=== PATIENT | male | born 1960 | race African-American/Black ===

== ENCOUNTER 2022-04-03 19:29 | Inpatient (IN) | payer OTHER, SELFPAY ==
--- NOTE | ~2022-04-03 | XR_ITS ---
EXAMINATION: XR ABDOMEN KUB CLINICAL INDICATION: History of stimulator. Pre-MRI. COMPARISON: None TECHNIQUE: AP view of the abdomen. FINDINGS: There is no neural stimulators seen in the lower thoracic lumbar or sacral spine. No metallic radiopaque foreign body seen. Scattered stool and gas is seen in colon without distention. There is no organomegaly or radiopaque calculi. There is mild dextro scoliosis lumbar spine. No aggressive lytic or sclerotic process seen. SI joints are symmetrical. XR/XR KUB IMPRESSION: 1. No neural stimulators seen in the lower thoracic, lumbar or sacral spine. 2. Mild constipation.
--- NOTE | ~2022-04-03 | XR_ITS ---
EXAMINATION: XR CHEST CLINICAL INFORMATION: cough fever COMPARISON: None TECHNIQUE: Frontal view of the chest was obtained. FINDINGS: Patchy multifocal ground glass airspace opacities are present in both lungs. No pneumothorax or pleural effusion. Cardiac and mediastinal contours are normal for technique. No acute osseous findings. Prior left distal clavicular resection. Mild osteoarthritis in the right acromioclavicular joint. Degenerative spondylosis in the thoracic spine. XR/XR chest 1V IMPRESSION: Patchy multifocal ground glass airspace opacities in both lungs, most concerning for multifocal pneumonia, likely viral
[2022-04-03 19:38] VITALS: BP 105/57; BP 110/62; PULSE 91; PULSE 98; RESP 18; TEMP 38.3; O2SAT 94; O2SAT 98; BMI 23.6
--- NOTE | 2022-04-03 19:47 | ED.AMS ---
HPI - Altered Mental Status General Chief Complaint: Altered Mental Status Stated Complaint: lower back pain Time Seen by Provider: 04/03/22 19:36 Source: patient and EMS Mode of arrival: EMS Limitations: no limitations History of Present Illness HPI narrative: Patient history of alcohol abuse IVDA cocaine and heroin in detox center for last 8 weeks comes here been having low back pain, cough for last few days had fever and chills today. On arrival patient's blood pressure was 105/57 temperature 101 degrees no vomiting no urinary complaints no abdominal distention or pain Related Data Allergies Allergy/AdvReac Type Severity Reaction Status Date / Time No Known Allergies Allergy Verified 04/03/22 19:46 Review of Systems Review of Systems: Yes all other systems are reviewed and are negative [facility] Past Medical History Medical History Alcohol use disorder Mood disorder Tobacco use disorder Social History Social History Smoked in Last 30 Days: Yes Use of substances other than those prescribed or required for medical reasons: Yes Substance Use Type: Crack/Cocaine Advance Directives: No Advance Directives Information Provided: No Physical Exam ED Vital Signs: Vital Signs - 24 hr 04/03/22 19:38 04/03/22 20:35 04/03/22 20:35 Temperature 101.0 F H 8 F L Pulse Rate 91 91 Respiratory Rate 18 15 16 Blood Pressure 105/57 L 105/57 L Pulse Oximetry 94 96 Oxygen Delivery Method Room Air Room Air 04/03/22 21:40 04/03/22 22:14 04/03/22 22:00 Temperature 99.4 F 99.4 F Pulse Rate 87 83 Respiratory Rate 16 Blood Pressure 103/63 Pulse Oximetry 100 Oxygen Delivery Method Room Air BMI result Body Mass Index 23.6 Appearance: Alert. Oriented X3. No acute distress. Eyes: pallor+ No Nystagmus ENT: Pharynx normal. Oral Mucosa moist Neck: Normal inspection. Neck supple. CVS: Normal heart rate and rhythm. Pulses normal. Respiratory: No respiratory distress. Equal air entry bilateral, no wheezing/rales/rhonchi Abdomen: Soft and nontender. Bowel sounds are present, no mass palpable, no CVA tenderness rectal: dark stool + guaic +ve Skin: Skin warm and dry. Normal skin color. Normal skin turgor. Extremities: 2+ lower extremity edema. No calf tenderness Neuro: Oriented X 3. No motor deficit. No sensory deficit.No cerebellar signs , cranial nerves II-XII intact Medications Administered Generic Name Dose Route Start Last Admin Trade Name Freq PRN Reason Stop Dose Admin Sodium Chloride 1,000 mls @ 100 mls/hr 04/04/22 00:15 04/04/22 00:51 Ns IVCONT 100 mls/hr .Q10H DEDRICK Administration Nicotine 21 mg 04/04/22 00:25 04/04/22 01:03 Nicotine 21 Mg Patch.Td24 TRANSDERMA Not Given DAILY DEDRICK Discontinued Medications Generic Name Dose Route Start Last Admin Trade Name Freq PRN Reason Stop Dose Admin Acetaminophen 650 mg 04/03/22 19:53 04/03/22 21:07 Acetaminophen 325 Mg Tablet PO 04/03/22 19:54 650 mg ONCE ONE Administration Famotidine 20 mg 04/03/22 23:18 04/03/22 23:42 Famotidine/Pf 20 Mg/2 Ml Vial IVPUSH 04/03/22 23:19 20 mg ONCE ONE Administration Sodium Chloride 1,000 mls @ 999 mls/hr 04/03/22 19:47 04/03/22 22:09 Ns IV 04/03/22 20:47 Infused .Q1H1M ONE Infusion Ceftriaxone Sodium 1 gm/ 50 mls @ 100 mls/hr 04/03/22 21:31 04/03/22 22:22 Sodium Chloride IV 04/03/22 22:00 Infused ONCE ONE Infusion Azithromycin 500 mg/ Sodium 250 mls @ 125 mls/hr 04/03/22 21:31 04/04/22 00:16 Chloride IV 04/03/22 23:30 Infused ONCE ONE Infusion Ketorolac Tromethamine 30 mg 04/03/22 19:53 04/03/22 21:08 Ketorolac Tromethamine 30 Mg/Ml Vial IVPUSH 04/03/22 19:54 30 mg ONCE ONE Administration Pantoprazole Sodium 80 mg 04/04/22 00:19 04/04/22 00:51 Pantoprazole Sodium 40 Mg/10 Ml Vial IVPUSH 04/04/22 00:20 80 mg ONCE ONE Administration Medical Decision Making Medical Decision Making MDM Narrative: Patient with multifocal pneumonia with change in sensorium with normal WBC count hemoglobin 7.6 MCV 78.9 likely iron deficiency anemia patient guaiac is positive but stool is brown patient used to be on iron tablets in the past. Lab workup showed iron level of 23 TIBC 215 saturating 11% meeting criteria for iron deficiency anemia at this time patient is asymptomatic from anemia will give iron tablets and admit Differential Diagnosis Pneumonia/COVID/influenza/UTI/viral syndrome Consult Healthcare Provider Management of the patient was discussed with: Hospitalist Lab Data [facility] Lab Attestation statement: I reviewed the patient's lab results. 04/03/22 20:19 04/03/22 20:19 Labs: Lab Results 04/03/22 04/03/22 04/03/22 Range/Units 20:19 20:19 20:19 WBC 10.0 (4.8-10.8) X10*3/uL RBC 2.99 L (4.60-5.80) X10*6/uL Hgb 7.6 L (14.0-18.0) g/dl Hct 23.6 L (42.0-52.0) % MCV 78.9 L (80.0-98.0) fL MCH 25.4 L (27.0-33.0) pg MCHC 32.2 (31.0-36.0) g/dl RDW 16.5 H (11.0-16.0) % Plt Count 107 L (160-400) X10*3/uL MPV 9.4 (9.4-12.4) fL Immature Gran % (Auto) 1.7 H (0.0-0.4) % Neut % (Auto) 80.6 H (45-73) % Lymph % (Auto) 6.8 L (20-40) % [place] % (Auto) 10.5 (2-11) % Eos % (Auto) 0.2 (0-4) % Baso % (Auto) 0.2 (0-2) % Lymph # (Auto) 0.7 L (1.2-4.9) X10*3/uL [place] # (Auto) 1.1 (0.1-1.2) X10*3/uL Eos # (Auto) 0.0 (0.0-0.4) X10*3/uL Baso # (Auto) 0.0 (0.0-0.2) X10*3/uL Abs Immat Gran (auto) 0.17 H (0.00-0.03) X10*3/uL Absolute Neuts (auto) 8.0 (2.0-8.3) x10*3/uL Absolute Nucleated RBC 0.000 (0.0-0.012) X10*3/uL Nucleated RBC % (auto) 0.0 (0.0-0.2) /100WBC Sodium 128 L (135-145) mmol/L Potassium 4.7 (3.3-5.1) mmol/L Chloride 100 (96-108) mmol/L Carbon Dioxide 20 L (22-29) mmol/L Anion Gap 13 (12-20) BUN 16 (9-16) mg/dL Creatinine 0.62 (0.5-1.4) mg/dL Estim Creat Clear Calc 121.9 Estimated GFR > 60 Random Glucose 104 (60-115) mg/dL Lactic Acid 1.3 (0.5-2.0) mmol/L Calcium 7.9 L (8.4-10.2) mg/dL Iron 23 L (45-160) mcg/dL TIBC 215 L (228-428) mcg/dL % Saturation 11 L (15-50) % Unsat Iron Binding 192 ug/dL Total Bilirubin 0.8 (0.0-1.0) mg/dL AST 146 H (5-37) U/L ALT 90 H (0-40) U/L Alkaline Phosphatase 181 H (39-117) U/L Total Protein 7.5 (6.5-8.0) g/dL Albumin 2.4 L (3.5-5.0) g/dL Urine Color Urine Appearance Urine pH (5.0-9.0) Ur Specific Young (1.005-1.025) Urine Protein (Neg-Trace) mg/dL Urine Glucose (UA) (Negative) mg/dL Urine Ketones (Negative) mg/dL Urine Blood (Negative) Urine Nitrite (Negative) Ur Leukocyte Esterase (Negative) Urine RBC (0-2) /HPF Urine WBC (0-5) /HPF Ur Squamous Epith Cells (0-2) /HPF Urine Bacteria (None Seen) Hyaline Casts (0-2) /LPF Stool Occult Blood (NEGATIVE) Influenza Type A (PCR) (Negative) Influenza Type B (PCR) (Negative) RSV RNA Qual (PCR) (Negative) SARS-CoV-2 RNA (RT-PCR) (Negative) Blood Type Rho(D) Type Antibody Screen 04/03/22 04/03/22 04/03/22 Range/Units 20:19 21:07 23:28 WBC (4.8-10.8) X10*3/uL RBC (4.60-5.80) X10*6/uL Hgb (14.0-18.0) g/dl Hct (42.0-52.0) % MCV (80.0-98.0) fL MCH (27.0-33.0) pg MCHC (31.0-36.0) g/dl RDW (11.0-16.0) % Plt Count (160-400) X10*3/uL MPV (9.4-12.4) fL Immature Gran % (Auto) (0.0-0.4) % Neut % (Auto) (45-73) % Lymph % (Auto) (20-40) % [place] % (Auto) (2-11) % Eos % (Auto) (0-4) % Baso % (Auto) (0-2) % Lymph # (Auto) (1.2-4.9) X10*3/uL [place] # (Auto) (0.1-1.2) X10*3/uL Eos # (Auto) (0.0-0.4) X10*3/uL Baso # (Auto) (0.0-0.2) X10*3/uL Abs Immat Gran (auto) (0.00-0.03) X10*3/uL Absolute Neuts (auto) (2.0-8.3) x10*3/uL Absolute Nucleated RBC (0.0-0.012) X10*3/uL Nucleated RBC % (auto) (0.0-0.2) /100WBC Sodium (135-145) mmol/L Potassium (3.3-5.1) mmol/L Chloride (96-108) mmol/L Carbon Dioxide (22-29) mmol/L Anion Gap (12-20) BUN (9-16) mg/dL Creatinine (0.5-1.4) mg/dL Estim Creat Clear Calc Estimated GFR Random Glucose (60-115) mg/dL Lactic Acid (0.5-2.0) mmol/L Calcium (8.4-10.2) mg/dL Iron (45-160) mcg/dL TIBC (228-428) mcg/dL % Saturation (15-50) % Unsat Iron Binding ug/dL Total Bilirubin (0.0-1.0) mg/dL AST (5-37) U/L ALT (0-40) U/L Alkaline Phosphatase (39-117) U/L Total Protein (6.5-8.0) g/dL Albumin (3.5-5.0) g/dL Urine Color Yellow Urine Appearance Clear Urine pH 7.0 (5.0-9.0) Ur Specific Young 1.015 (1.005-1.025) Urine Protein Negative (Neg-Trace) mg/dL Urine Glucose (UA) Negative (Negative) mg/dL Urine Ketones Negative (Negative) mg/dL Urine Blood Small (1+) H (Negative) Urine Nitrite Negative (Negative) Ur Leukocyte Esterase Negative (Negative) Urine RBC 0-2 (0-2) /HPF Urine WBC 0-5 (0-5) /HPF Ur Squamous Epith Cells 0-2 (0-2) /HPF Urine Bacteria None Seen (None Seen) Hyaline Casts 0-2 (0-2) /LPF Stool Occult Blood POSITIVE (NEGATIVE) Influenza Type A (PCR) NEGATIVE (Negative) Influenza Type B (PCR) NEGATIVE (Negative) RSV RNA Qual (PCR) NEGATIVE (Negative) SARS-CoV-2 RNA (RT-PCR) NEGATIVE (Negative) Blood Type Rho(D) Type Antibody Screen 04/03/22 Range/Units 23:55 WBC (4.8-10.8) X10*3/uL RBC (4.60-5.80) X10*6/uL Hgb (14.0-18.0) g/dl Hct (42.0-52.0) % MCV (80.0-98.0) fL MCH (27.0-33.0) pg MCHC (31.0-36.0) g/dl RDW (11.0-16.0) % Plt Count (160-400) X10*3/uL MPV (9.4-12.4) fL Immature Gran % (Auto) (0.0-0.4) % Neut % (Auto) (45-73) % Lymph % (Auto) (20-40) % [place] % (Auto) (2-11) % Eos % (Auto) (0-4) % Baso % (Auto) (0-2) % Lymph # (Auto) (1.2-4.9) X10*3/uL [place] # (Auto) (0.1-1.2) X10*3/uL Eos # (Auto) (0.0-0.4) X10*3/uL Baso # (Auto) (0.0-0.2) X10*3/uL Abs Immat Gran (auto) (0.00-0.03) X10*3/uL Absolute Neuts (auto) (2.0-8.3) x10*3/uL Absolute Nucleated RBC (0.0-0.012) X10*3/uL Nucleated RBC % (auto) (0.0-0.2) /100WBC Sodium (135-145) mmol/L Potassium (3.3-5.1) mmol/L Chloride (96-108) mmol/L Carbon Dioxide (22-29) mmol/L Anion Gap (12-20) BUN (9-16) mg/dL Creatinine (0.5-1.4) mg/dL Estim Creat Clear Calc Estimated GFR Random Glucose (60-115) mg/dL Lactic Acid (0.5-2.0) mmol/L Calcium (8.4-10.2) mg/dL Iron (45-160) mcg/dL TIBC (228-428) mcg/dL % Saturation (15-50) % Unsat Iron Binding ug/dL Total Bilirubin (0.0-1.0) mg/dL AST (5-37) U/L ALT (0-40) U/L Alkaline Phosphatase (39-117) U/L Total Protein (6.5-8.0) g/dL Albumin (3.5-5.0) g/dL Urine Color Urine Appearance Urine pH (5.0-9.0) Ur Specific Young (1.005-1.025) Urine Protein (Neg-Trace) mg/dL Urine Glucose (UA) (Negative) mg/dL Urine Ketones (Negative) mg/dL Urine Blood (Negative) Urine Nitrite (Negative) Ur Leukocyte Esterase (Negative) Urine RBC (0-2) /HPF Urine WBC (0-5) /HPF Ur Squamous Epith Cells (0-2) /HPF Urine Bacteria (None Seen) Hyaline Casts (0-2) /LPF Stool Occult Blood (NEGATIVE) Influenza Type A (PCR) (Negative) Influenza Type B (PCR) (Negative) RSV RNA Qual (PCR) (Negative) SARS-CoV-2 RNA (RT-PCR) (Negative) Blood Type Cancelled Rho(D) Type Cancelled Antibody Screen Cancelled Discharge Plan Discharge Clinical Impression: Weakness Patient Disposition: Still a Patient
--- NOTE | 2022-04-03 19:53 | ECG_ITS ---
Test Reason : AMS Blood Pressure : / mmHG Vent. Rate : 097 BPM Atrial Rate : 097 BPM P-R Int : 138 ms QRS Dur : 084 ms QT Int : 358 ms P-R-T Axes : 037 038 036 degrees QTc Int : 454 ms Normal sinus rhythm Normal ECG No previous ECGs available Referred By: Abraham Messer Electronically Signed By:PORTER KENT MD
[2022-04-03 20:35] VITALS: BP 105/57; PULSE 91; RESP 15; RESP 16; TEMP -13.3; TEMP 8; O2SAT 96
[2022-04-03 20:37] LABS: MANUAL DIFF FLAG NO
[2022-04-03 20:39] LABS: Basophils Percent Auto 0.2 % (0-2); Eosinophils Percent Auto 0.2 % (0-4); Hematocrit 23.6 % (42.0-52.0); Hemoglobin 7.6 g/dl (14.0-18.0); Imm Gran Abs Auto 0.17 X10*3/uL (0.00-0.03); Imm Gran Pct Auto 1.7 % (0.0-0.4); Lymphocytes Absolute Auto 0.7 X10*3/uL (1.2-4.9); Lymphocytes Percent Auto 6.8 % (20-40); Mean Corpuscular HGB Conc 32.2 g/dl (31.0-36.0); Mean Corpuscular Hemoglobin 25.4 pg (27.0-33.0); Mean Corpuscular Volume 78.9 fL (80.0-98.0); Mean Platelet Volume 9.4 fL (9.4-12.4); Monocytes Absolute Auto 1.1 X10*3/uL (0.1-1.2); Monocytes Percent Auto 10.5 % (2-11); Neutrophils Percent Auto 80.6 % (45-73); Platelet Count 107 X10*3/uL (160-400); Red Blood Count 2.99 X10*6/uL (4.60-5.80); Red Cell Distribution Width 16.5 % (11.0-16.0)
[2022-04-03 20:51] LABS: Lactic Acid 1.3 mmol/L (0.5-2.0)
[2022-04-03 20:57] LABS: Alanine Aminotransferase 90 U/L (0-40); Albumin Level 2.4 g/dL (3.5-5.0); Alkaline Phosphatase 181 U/L (39-117); Anion Gap 13 (12-20); Aspartate Amino Transferase 146 U/L (5-37); Bilirubin Total 0.8 mg/dL (0.0-1.0); Blood Urea Nitrogen 16 mg/dL (9-16); Calcium 7.9 mg/dL (8.4-10.2); Carbon Dioxide 20 mmol/L (22-29); Chloride 100 mmol/L (96-108); Creatinine Clr Calc Pharmacy 121.9; Estimated Glomerular Filt Rate > 60; Glucose Random 104 mg/dL (60-115); Potassium 4.7 mmol/L (3.3-5.1); Sodium 128 mmol/L (135-145); Total Protein 7.5 g/dL (6.5-8.0)
[2022-04-03] MEDS: Acetaminophen 325 MG TABLET 650 MG PO (21:07)
[2022-04-03] MEDS: 0.9 % Sodium Chloride 1,000 ML 999 ML IV (21:08)
[2022-04-03] MEDS: Ketorolac Tromethamine 30 MG/ML VIAL IVPUSH (21:08)
[2022-04-03 21:16] LABS: Appearance Urine Clear; Color Urine Yellow; Glucose Urine UA Negative (Negative); Leukocyte Esterase Urine Negative (Negative); Nitrite Urine Negative (Negative); Specific Gravity - Urine 1.015 (1.005-1.025); UMIC TRIGGER UACC YES; Urine Blood Small (1+) (Negative); Urine Ketones Negative (Negative); Urine Protein Negative (Neg-Trace)
[2022-04-03 21:23] LABS: Influenza A PCR NEGATIVE (Negative); Influenza B PCR NEGATIVE (Negative); Resp Syncy Virus RNA Qual PCR NEGATIVE (Negative); SARS COV2 PCR INHOUSE NEGATIVE (Negative)
[2022-04-03 21:40] VITALS: PULSE 87
[2022-04-03] MEDS: cefTRIAXone sodium 1 GM in 0.9 % Sodium Chloride 50 ML IV (21:52)
[2022-04-03 22:00] VITALS: TEMP 37.4
[2022-04-03 22:14] VITALS: BP 103/63; PULSE 83; RESP 16; TEMP 37.4; O2SAT 100
[2022-04-03] MEDS: Azithromycin 500 MG in 0.9 % Sodium Chloride 250 ML 125 MG IV (22:16)
[2022-04-03 23:03] LABS: Bacteria Urine None Seen (None Seen); Hyaline Casts Urine 0-2 /LPF (0-2); RBC Urine 0-2 /HPF (0-2); Squamous Epithelial Cell Urine 0-2 /HPF (0-2); WBC Urine 0-5 /HPF (0-5)
[2022-04-03 23:26] LABS: Iron 23 mcg/dL (45-160); Percent Iron Saturation 11 % (15-50); Total Iron Binding Capacity 215 mcg/dL (228-428); Unsaturated Iron Binding 192 ug/dL
[2022-04-03 23:31] LABS: OBS Int Ctl Valid YES
[2022-04-03 23:33] LABS: OBS1 POSITIVE (NEGATIVE)
[2022-04-03] MEDS: Famotidine/PF 20 MG/2 ML VIAL IVPUSH (23:42)
[2022-04-04] VITALS (7 sets, daily range): BP systolic 97–138; BP diastolic 66–90; PULSE 63–86; RESP 11–20; TEMP 36.4–37.4; O2SAT 92–100
--- NOTE | 2022-04-04 00:04 | PM.IMHP ---
History of Present Illness Date of Service: 04/04/22 Chief Complaint: Cough This is 61-year-old male with pertinent history of alcohol use disorder, tobacco use disorder, mood disorder who presents to the emergency department for evaluation fever, chills and cough. Patient states he has been having these symptoms for the last few days . Does have cough with occasional yellowish sputum production. Patient denies any other symptoms at this time. States he was having chills throughout the day. He denies hematemesis, melena, hematochezia, hematuria. No blood loss. No chest discomfort, shortness of breath, palpitations, abdominal pain, changes in urinary or bowel habits. In the emergency department, imaging with pneumonia. Hemoglobin was found to be 7.6 and stool occult blood positive Review of Systems Constitutional: Constitutional: Reports chills and Reports fever(s) Cardiovascular: Cardiovascular: Reports no additional cardiovascular complaints Respiratory: Respiratory: Reports cough Gastrointestinal: Gastrointestinal: Reports no additional gastrointestinal complaints Genitourinary: Genitourinary: Reports no additional male genitourinary complaints [facility] Medical History Alcohol use disorder Mood disorder Tobacco use disorder Pertinent family history: Does not know of pertinent family history in first-degree relatives Social History Smoked in Last 30 Days: Yes Use of substances other than those prescribed or required for medical reasons: Yes Substance Use Type: Crack/Cocaine Advance Directives: No Advance Directives Information Provided: No Meds Allergies Allergy/AdvReac Type Severity Reaction Status Date / Time No Known Allergies Allergy Verified 04/03/22 19:46 Physical Exam Vital Signs and Narrative: Vital Signs: Last Vital Signs Temp 99.4 F 04/03/22 22:14 Pulse 83 04/03/22 22:14 Resp 16 04/03/22 22:14 BP 103/63 04/03/22 22:14 Pulse Ox 100 04/03/22 22:14 O2 Del Method 04/03/22 22:14 BMI result Body Mass Index 23.6 Middle-aged male lying in bed in no distress Neck supple, no JVD Regular rate and rhythm, S1-S2 heard Crackles appreciated bilaterally, no wheezing Abdomen soft nontender, no guarding, no rigidity Patient is awake, alert and oriented to self, place, time and person ; no focal motor deficit Psych: Normal mood No pedal edema Results Labs 04/03/22 20:19 04/03/22 20:19 Labs: Laboratory Results - last 24 hr 04/03/22 04/03/22 04/03/22 20:19 20:19 20:19 MCV 78.9 L MCH 25.4 L MCHC 32.2 RDW 16.5 H Plt Count 107 L MPV 9.4 Immature Gran % (Auto) 1.7 H Neut % (Auto) 80.6 H Lymph % (Auto) 6.8 L [place] % (Auto) 10.5 Eos % (Auto) 0.2 Baso % (Auto) 0.2 Lymph # (Auto) 0.7 L [place] # (Auto) 1.1 Eos # (Auto) 0.0 Baso # (Auto) 0.0 Abs Immat Gran (auto) 0.17 H Absolute Neuts (auto) 8.0 Absolute Nucleated RBC 0.000 Nucleated RBC % (auto) 0.0 Anion Gap 13 Estim Creat Clear Calc 121.9 Estimated GFR > 60 Random Glucose 104 Lactic Acid 1.3 Calcium 7.9 L Iron 23 L TIBC 215 L % Saturation 11 L Unsat Iron Binding 192 Total Bilirubin 0.8 AST 146 H ALT 90 H Alkaline Phosphatase 181 H Total Protein 7.5 Albumin 2.4 L Urine Color Urine Appearance Urine pH Ur Specific [place] Urine Protein Urine Glucose (UA) Urine Ketones Urine Blood Urine Nitrite Ur Leukocyte Esterase Urine RBC Urine WBC Ur Squamous Epith Cells Urine Bacteria Hyaline Casts Stool Occult Blood Influenza Type A (PCR) Influenza Type B (PCR) RSV RNA Qual (PCR) SARS-CoV-2 RNA (RT-PCR) Blood Type Rho(D) Type Antibody Screen 04/03/22 04/03/22 04/03/22 20:19 21:07 23:28 MCV MCH MCHC RDW Plt Count MPV Immature Gran % (Auto) Neut % (Auto) Lymph % (Auto) [place] % (Auto) Eos % (Auto) Baso % (Auto) Lymph # (Auto) [place] # (Auto) Eos # (Auto) Baso # (Auto) Abs Immat Gran (auto) Absolute Neuts (auto) Absolute Nucleated RBC Nucleated RBC % (auto) Anion Gap Estim Creat Clear Calc Estimated GFR Random Glucose Lactic Acid Calcium Iron TIBC % Saturation Unsat Iron Binding Total Bilirubin AST ALT Alkaline Phosphatase Total Protein Albumin Urine Color Yellow Urine Appearance Clear Urine pH 7.0 Ur Specific [place] 1.015 Urine Protein Negative Urine Glucose (UA) Negative Urine Ketones Negative Urine Blood Small (1+) H Urine Nitrite Negative Ur Leukocyte Esterase Negative Urine RBC 0-2 Urine WBC 0-5 Ur Squamous Epith Cells 0-2 Urine Bacteria None Seen Hyaline Casts 0-2 Stool Occult Blood POSITIVE Influenza Type A (PCR) NEGATIVE Influenza Type B (PCR) NEGATIVE RSV RNA Qual (PCR) NEGATIVE SARS-CoV-2 RNA (RT-PCR) NEGATIVE Blood Type Rho(D) Type Antibody Screen 04/03/22 23:55 MCV MCH MCHC RDW Plt Count MPV Immature Gran % (Auto) Neut % (Auto) Lymph % (Auto) [place] % (Auto) Eos % (Auto) Baso % (Auto) Lymph # (Auto) [place] # (Auto) Eos # (Auto) Baso # (Auto) Abs Immat Gran (auto) Absolute Neuts (auto) Absolute Nucleated RBC Nucleated RBC % (auto) Anion Gap Estim Creat Clear Calc Estimated GFR Random Glucose Lactic Acid Calcium Iron TIBC % Saturation Unsat Iron Binding Total Bilirubin AST ALT Alkaline Phosphatase Total Protein Albumin Urine Color Urine Appearance Urine pH Ur Specific [place] Urine Protein Urine Glucose (UA) Urine Ketones Urine Blood Urine Nitrite Ur Leukocyte Esterase Urine RBC Urine WBC Ur Squamous Epith Cells Urine Bacteria Hyaline Casts Stool Occult Blood Influenza Type A (PCR) Influenza Type B (PCR) RSV RNA Qual (PCR) SARS-CoV-2 RNA (RT-PCR) Blood Type Cancelled Rho(D) Type Cancelled Antibody Screen Cancelled Imaging Radiologist's Impressions: Impressions Chest X-Ray 04/03/22 20:49 IMPRESSION: Patchy multifocal ground glass airspace opacities in both lungs, most concerning for multifocal pneumonia, likely viral Assessment and Plan (1) Pneumonia: Status: Acute (2) Microcytic anemia: Status: Acute Plan This is 61-year-old male with pertinent history of alcohol use disorder, tobacco use disorder, mood disorder who presents to the emergency department for evaluation fever, chills and cough. #. Sepsis due to pneumonia: Will admit patient and initiate empiric IV Rocephin and azithromycin. Resuscitated with IV crystalloids. Blood culture and lactic acid obtained. Legionella antigen and sputum culture pending. #. Microcytic anemia, unclear chronicity: Stool occult positive. Will consult GI for further evaluation and management. Monitor H&H. Protonix 80 mg IV x1. #. Tobacco use disorder: Will order nicotine patch while in the hospital #. Mood disorder: Continue home mood stabilizers #. Thrombocytopenia due to alcohol use disorder #. Hyponatremia: Monitor with fluid resuscitation. Med rec pending DVT prophylaxis: Mechanical Will keep NPO until GI evaluation Full code Admit as inpatient and will require two night minimum hospital stay for IV antibiotic Time Spent With Patient Time: Total time managing care of this patient today ____ minutes. Quality Stroke Does the patient have a stroke diagnosis?: No VTE Prior VTE?: No VTE Risk Level:: Medical - moderate - high VTE Device Contraindication: N/A - Device Ordered VTE Drug Contraindication: Treatment Not Indicated
[2022-04-04] MEDS: Pantoprazole Sodium 40 MG/10 ML VIAL 80 MG IVPUSH (00:51)
[2022-04-04] MEDS: 0.9 % Sodium Chloride 1,000 ML 100 ML IVCONT ×3 (00:51→17:24)
[2022-04-04 06:43] LABS: MANUAL DIFF FLAG NO
[2022-04-04 06:53] LABS: Basophils Percent Auto 0.2 % (0-2); Eosinophils Absolute Auto 0.1 X10*3/uL (0.0-0.4); Eosinophils Percent Auto 0.8 % (0-4); Hematocrit 23.2 % (42.0-52.0); Hemoglobin 7.5 g/dl (14.0-18.0); Imm Gran Abs Auto 0.12 X10*3/uL (0.00-0.03); Imm Gran Pct Auto 1.8 % (0.0-0.4); Lymphocytes Absolute Auto 0.6 X10*3/uL (1.2-4.9); Lymphocytes Percent Auto 8.9 % (20-40); Mean Corpuscular HGB Conc 32.3 g/dl (31.0-36.0); Mean Corpuscular Hemoglobin 26.1 pg (27.0-33.0); Mean Corpuscular Volume 80.8 fL (80.0-98.0); Monocytes Absolute Auto 1.1 X10*3/uL (0.1-1.2); Monocytes Percent Auto 16.1 % (2-11); Neutrophils Absolute Auto 4.8 x10*3/uL (2.0-8.3); Neutrophils Percent Auto 72.2 % (45-73); Red Blood Count 2.87 X10*6/uL (4.60-5.80); Red Cell Distribution Width 16.7 % (11.0-16.0); White Blood Count 6.6 X10*3/uL (4.8-10.8)
[2022-04-04 06:55] LABS: Platelet Count 84 X10*3/uL (160-400)
--- NOTE | 2022-04-04 07:00 | CA_ITS ---
Transthoracic Echocardiogram Patient (Last, First, Middle): Tai Sommer, Gender: Male Date of : 1960 Age: 61 Procedure Date: 04/04/2022 Procedure Type: Transthoracic Echocardiogram Location: ER Height: 175.26 cm Weight: 72.58 kg BSA: 1.88 m2 Heart Rate: bpm BP: 114 / 71 mmHg Sinter Feeder: MARLON Referring MD: Zeny BENAVIDEZ Directional Drill Operator: Dann Subramanian MD Symptoms: bacteremia Study Quality: Fair ECG Rhythm: Sinus Conclusions: - 1. Normal LV systolic function with LVEF of 55-60% with mildly dilated cavity with pseudonormal filling pattern 2. Moderately dilated left atrium 3. Possible vegetation of the anterior mitral leaflet with mild mitral regurgitation 4. Normal RV systolic pressure 5. No gross pericardial effusion Findings Left Ventricle Mildly increased left ventricular cavity size. There is normal left ventricular wall thickness. The left ventricular systolic function is normal. The visually estimated ejection fraction is between 55-60%. Spectral Doppler is indicative of a pseudonormal filling pattern. E/E prime ratio is between 8 and 15 consistent with indeterminate filling pressures. Right Ventricle Normal right ventricular cavity size and systolic function. Atria The left atrium is moderately dilated. Interatrial shunt cannot be excluded. The right atrium is normal in size. Aortic Valve There is mild calcification of the aortic valve. There is moderate thickening of the aortic valve. There is no aortic valve stenosis. There is no aortic valve regurgitation. Mitral Valve There is moderate anterior and posterior mitral leaflet thickening. There is mild mitral valve regurgitation. There is no mitral valve stenosis. a mobile mass attached to the anterior leaflet, measuring about 1 cm could represent vegetation. Consider LINDSAY Pulmonic Valve The pulmonic valve was not well visualized. Tricuspid Valve Likely normal tricuspid valve structure and function. There is mild tricuspid valve regurgitation. Mildly elevated right atrial pressure. There is no evidence of pulmonary hypertension. Great Vessels All visible segments of the aorta are normal in size. The pulmonary artery was not well visualized. Venous The inferior vena cava is moderately dilated and collapses less than 50% with inspiration. Pericardium/Pleural There is no evidence of pericardial effusion. Prior Study Comparison No prior study available for comparison. Measurements 2D Linear Measurements IVSd: 0.85 0.6-0.9/0.6-1.0 cm LVIDd: 6.18 3.9-5.3/4.2-5.9 cm LVIDd Index: 3.29 2.4-3.2/2.2-3.1 cm/m2 LVIDs: 4.36 2.0-3.6 cm LVPWd: 0.99 0.7-1.1 cm LA Diam: 4.20 2.7-3.8/3.0-4.0 cm LAIDs Index: 2.23 1.5-2.3 cm/m2 LV Mass: 290.81 67-162/88-224 g LV Mass Index: 154.69 43-95/49-115 g/m2 LVOT Diam: 2.10 3.0+(-)1.3 cm 2D Systolic Function EF 4C: 53.20 >55% EF 2C: 63.00 >55% EF BiP: 59.10 >55% Mitral Valve MV Pk E: 1.32 MV PK A: 0.72 MV Decel Time: 215.00 E/A: 1.80 E'Lateral: 12.90 E'Medial: 10.20 E/E' Med: 12.90 E/E' Lat: 10.20 PHT: 63.00 MVA PHT: 3.49 Decel Benzie: 6.14 Aortic Valve AoV Pk Colten: 1.59 AoV Mn Colten: 1.22 AoV VTI: 0.34 AoV Pk Grad: 10.00 Aov Mn Grad: 7.00 JOEL Cont.VTI: 2.56 LVOT LVOT Pk Colten: 1.21 LVOT Mn Colten: 0.83 LVOT VTI: 0.25 LVOT Pk Grad: 6.00 LVOT Mn Grad: 3.00 LVOT Diam: 2.10 LVOT Area: 3.46 Diastolic Function MV Pk E: 1.32 MV Pk A: 0.72 E/A: 1.80 E'Medial: 10.20 E/E' Med: 12.90 E' Laterial: 12.90 E/E' Lat: 10.20 Right Ventricle TAPSE (mm): 29.00 TVS' Colten: 13.30 Tricuspid Valve TR Pk Colten: 2.42 TR Pk Grad: 23.00 RA Press: 8.00 RVSP: 31.00 Great Vessels Aorta Sinus of Valsalva: 3.34 2.0-3.[address] [place]: 2.64 1.7-3.4 cm Ao Asc: 3.50 2.1-3.4 cm Updated in Other Vendor System with Status of Final Dann Subramanian MD electronically signed on 04/04/2022 5:36:13 PM with status of Final
[2022-04-04 07:09] LABS: Anion Gap 11 (12-20); Blood Urea Nitrogen 17 mg/dL (9-16); Calcium 7.9 mg/dL (8.4-10.2); Carbon Dioxide 20 mmol/L (22-29); Chloride 106 mmol/L (96-108); Creatinine Clr Calc Pharmacy 118.1; Estimated Glomerular Filt Rate > 60; Glucose Random 72 mg/dL (60-115); Potassium 4.4 mmol/L (3.3-5.1); Sodium 133 mmol/L (135-145)
--- NOTE | 2022-04-04 11:36 | P.PNIM_ITS ---
Subjective Subjective Date of Service: 04/04/22 Interval History: Seen in follow up for pneumonia Interval history: admitted early this morning for sepsis from pneumonia foudn to have heme positive stool. Pt does endorse black stool. No nausea/vomiting, diarrhea, hematachezia,, abd pain. H/H stable overnight. Now afebrile. Na improved to 133. Review of Systems Review of Systems: Yes all other systems are reviewed and are negative Physical Exam Vital Signs: Vital Signs: Last Vital Signs Temp 97.9 F 04/04/22 00:42 Pulse 63 04/04/22 08:06 Resp 11 L 04/04/22 08:06 BP 98/66 04/04/22 08:06 Pulse Ox 100 04/04/22 08:06 O2 Del Method 04/04/22 08:06 BMI result Body Mass Index 23.6 Constitutional - Awake and Alert, No apparent distress Eyes - PERRLA, EOMI Cardiovascular - S1S2, RRR, No edema Respiratory - Normal lung expansion, Normal respiratory effort, No respiratory distress, bilateral crackles lower lobes Gastrointestinal - NT / ND; +BS; No rebound or guarding Extremities - no calf tenderness bilaterally, no swelling Skin - Warm/Dry Neurological - Alert & oriented x3 Psychological - Appropriate affect Objective Data Active Medications Acetaminophen (Acetaminophen 325 Mg Tablet) 650 mg PO Q6H PRN PRN Reason: Pain, Mild (Pain Scale 1-3) Ferrous Sulfate (Ferrous Sulfate 324 Mg Tablet.) 324 mg PO DAILY DEDRICK Gabapentin (Gabapentin 300 Mg Capsule) 300 mg PO TID REPLACED BY [facility] Sodium Chloride (Ns) 1,000 mls @ 100 mls/hr IVCONT .Q10H REPLACED BY [facility] Last Admin: 04/04/22 08:47 Dose: 100 mls/hr Documented By: MALVIN Ceftriaxone Sodium 1 gm/ (Sodium Chloride) 50 mls @ 100 mls/hr IV Q24H REPLACED BY [facility] Azithromycin 500 mg/ Sodium (Chloride) 250 mls @ 125 mls/hr IV Q24H REPLACED BY [facility] Melatonin (Melatonin 3 Mg Tablet) 6 mg PO BEDTIME PRN PRN Reason: Insomnia Nicotine (Nicotine 21 Mg Patch.Td24) 21 mg TRANSDERMA DAILY REPLACED BY [facility] Last Admin: 04/04/22 08:49 Dose: Not Given Documented By: MALVIN Non-Admin Reason: Patient Refused Ondansetron HCl (Ondansetron Hcl 4 Mg/2 Ml Vial) 4 mg IVPUSH Q8H PRN PRN Reason: Nausea and Vomiting Pharmacy Consult (Consult Rx Perform Med Rec) 1 each MISCELLANE ONCE PRN PRN Reason: Consult order Sodium Chloride (0.9 % Sodium Chloride Flush 3 Ml Syringe) 3 ml IVFLUSH QSHIFT REPLACED BY [facility] Last Admin: 04/04/22 08:50 Dose: Not Given Documented By: MALVIN Non-Admin Reason: Fluids running Trazodone HCl (Trazodone Hcl 50 Mg Tablet) 50 mg PO BEDTIME REPLACED BY [facility] Labs 04/04/22 06:07 04/04/22 06:07 Labs: Laboratory Results - last 24 hr 04/03/22 04/03/22 04/03/22 20:19 20:19 20:19 MCV 78.9 L MCH 25.4 L MCHC 32.2 RDW 16.5 H Plt Count 107 L MPV 9.4 Immature Gran % (Auto) 1.7 H Neut % (Auto) 80.6 H Lymph % (Auto) 6.8 L [place] % (Auto) 10.5 Eos % (Auto) 0.2 Baso % (Auto) 0.2 Lymph # (Auto) 0.7 L [place] # (Auto) 1.1 Eos # (Auto) 0.0 Baso # (Auto) 0.0 Abs Immat Gran (auto) 0.17 H Absolute Neuts (auto) 8.0 Absolute Nucleated RBC 0.000 Nucleated RBC % (auto) 0.0 Anion Gap 13 Estim Creat Clear Calc 121.9 Estimated GFR > 60 Random Glucose 104 Lactic Acid 1.3 Calcium 7.9 L Iron 23 L TIBC 215 L % Saturation 11 L Unsat Iron Binding 192 Total Bilirubin 0.8 AST 146 H ALT 90 H Alkaline Phosphatase 181 H Total Protein 7.5 Albumin 2.4 L Urine Color Urine Appearance Urine pH Ur Specific [place] Urine Protein Urine Glucose (UA) Urine Ketones Urine Blood Urine Nitrite Ur Leukocyte Esterase Urine RBC Urine WBC Ur Squamous Epith Cells Urine Bacteria Hyaline Casts Stool Occult Blood Influenza Type A (PCR) Influenza Type B (PCR) RSV RNA Qual (PCR) SARS-CoV-2 RNA (RT-PCR) Blood Type Rho(D) Type Antibody Screen 04/03/22 04/03/22 04/03/22 20:19 21:07 23:28 MCV MCH MCHC RDW Plt Count MPV Immature Gran % (Auto) Neut % (Auto) Lymph % (Auto) [place] % (Auto) Eos % (Auto) Baso % (Auto) Lymph # (Auto) [place] # (Auto) Eos # (Auto) Baso # (Auto) Abs Immat Gran (auto) Absolute Neuts (auto) Absolute Nucleated RBC Nucleated RBC % (auto) Anion Gap Estim Creat Clear Calc Estimated GFR Random Glucose Lactic Acid Calcium Iron TIBC % Saturation Unsat Iron Binding Total Bilirubin AST ALT Alkaline Phosphatase Total Protein Albumin Urine Color Yellow Urine Appearance Clear Urine pH 7.0 Ur Specific [place] 1.015 Urine Protein Negative Urine Glucose (UA) Negative Urine Ketones Negative Urine Blood Small (1+) H Urine Nitrite Negative Ur Leukocyte Esterase Negative Urine RBC 0-2 Urine WBC 0-5 Ur Squamous Epith Cells 0-2 Urine Bacteria None Seen Hyaline Casts 0-2 Stool Occult Blood POSITIVE Influenza Type A (PCR) NEGATIVE Influenza Type B (PCR) NEGATIVE RSV RNA Qual (PCR) NEGATIVE SARS-CoV-2 RNA (RT-PCR) NEGATIVE Blood Type Rho(D) Type Antibody Screen 04/03/22 04/04/22 04/04/22 23:55 00:28 06:07 MCV 80.8 MCH 26.1 L MCHC 32.3 RDW 16.7 H Plt Count 84 L MPV 9.0 L Immature Gran % (Auto) 1.8 H Neut % (Auto) 72.2 Lymph % (Auto) 8.9 L [place] % (Auto) 16.1 H Eos % (Auto) 0.8 Baso % (Auto) 0.2 Lymph # (Auto) 0.6 L [place] # (Auto) 1.1 Eos # (Auto) 0.1 Baso # (Auto) 0.0 Abs Immat Gran (auto) 0.12 H Absolute Neuts (auto) 4.8 Absolute Nucleated RBC 0.000 Nucleated RBC % (auto) 0.0 Anion Gap Estim Creat Clear Calc Estimated GFR Random Glucose Lactic Acid Calcium Iron TIBC % Saturation Unsat Iron Binding Total Bilirubin AST ALT Alkaline Phosphatase Total Protein Albumin Urine Color Urine Appearance Urine pH Ur Specific [place] Urine Protein Urine Glucose (UA) Urine Ketones Urine Blood Urine Nitrite Ur Leukocyte Esterase Urine RBC Urine WBC Ur Squamous Epith Cells Urine Bacteria Hyaline Casts Stool Occult Blood Influenza Type A (PCR) Influenza Type B (PCR) RSV RNA Qual (PCR) SARS-CoV-2 RNA (RT-PCR) Blood Type Cancelled O Negative Rho(D) Type Cancelled Antibody Screen Cancelled NEGATIVE 04/04/22 06:07 MCV MCH MCHC RDW Plt Count MPV Immature Gran % (Auto) Neut % (Auto) Lymph % (Auto) [place] % (Auto) Eos % (Auto) Baso % (Auto) Lymph # (Auto) [place] # (Auto) Eos # (Auto) Baso # (Auto) Abs Immat Gran (auto) Absolute Neuts (auto) Absolute Nucleated RBC Nucleated RBC % (auto) Anion Gap 11 L Estim Creat Clear Calc 118.1 Estimated GFR > 60 Random Glucose 72 Lactic Acid Calcium 7.9 L Iron TIBC % Saturation Unsat Iron Binding Total Bilirubin AST ALT Alkaline Phosphatase Total Protein Albumin Urine Color Urine Appearance Urine pH Ur Specific [place] Urine Protein Urine Glucose (UA) Urine Ketones Urine Blood Urine Nitrite Ur Leukocyte Esterase Urine RBC Urine WBC Ur Squamous Epith Cells Urine Bacteria Hyaline Casts Stool Occult Blood Influenza Type A (PCR) Influenza Type B (PCR) RSV RNA Qual (PCR) SARS-CoV-2 RNA (RT-PCR) Blood Type Rho(D) Type Antibody Screen Assessment and Plan (1) Transaminitis: Status: Acute Plan This is 61-year-old male with pertinent history of alcohol use disorder, tobacco use disorder, mood disorder admitted for multifocal pneumonia with sepsis # Sepsis due to pneumonia- sepsis resolved -secondary to multifocal pneumonia -Continue abx below # Multifocal pneumonia -Negative for flu, rsv, covid-19 -Continue ceftriaxone (D2) and Azithromycin (D2) -blood cultures, legionella pending -No hypoxia -Symptomatic management #Iron deficiency anemia- unspecified chronicity -?r/t to GI bleed. Stool occult positive, pt reports hx melena -Continue IV PPI -Appreciate GI input #Alcohol use disorder/polysubstance abuse -Hx IVDA cocaine and heroin -Residing at detox center ([facility]) for last 8 weeks- no recent use -Continue methadone #Transamininitis - likely related to IVDA and etoh use disorder -Check Hep C ab and HIV # Tobacco use disorder - Nicotine patch NRT #Mood disorder -continue home meds #Thrombocytopenia- likely chronic, not severe sepsis -due to alcohol use disorder -Follow PLT count #Hyponatremia -Improved -Follow BMP DVT prophylaxis: Mechanical Full code Pt requires ongoing inpt stay for management of multifocal pneumonia with sepsis requiring IV abx Time Spent With Patient Time: Total time managing care of this patient today ____ minutes. Quality Stroke Does the patient have a stroke diagnosis?: No VTE Prior VTE?: No VTE Risk Level:: Medical - moderate - high VTE Device Contraindication: N/A - Device Ordered VTE Drug Contraindication: Treatment Not Indicated
--- NOTE | 2022-04-04 11:56 | PC.NURSE ---
pt AOx3, vss. Fluids running, pt awaiting methadone dose.
--- NOTE | 2022-04-04 12:25 | MHC.CM.PN ---
PT REPORTS HE WAS ON THE CSS UNIT AT [facility] MOLD BREAKER HE SAYS HE IS INDEPENDENT WITH CARE AND HAS NO DME / SERVICES PCP: TATA PALACIOS HE SAYS HE IS COVID VAX DECLINES TO COMPLETE A HCP PT REPORTS THE STAFF AT [facility] TOLD HIM HE COULD RETURN TO THE PROGRAM ONCE CLEAR HE BELIEVES THEY WILL PROVIDE TRANSPORT
--- NOTE | 2022-04-04 13:52 | PHA.PROG ---
Admission Date/Time: April 04, 2022 00:05 Indication: bacteremia Weight in k.575 kg Adjusted body weight in Kg: [place] body weight in Kg: Obesity Dosing Indication % IBW: Serum Creatinine - Last 168 Hours 04/03/22 04/04/22 20:19 06:07 Creatinine 0.62 0.64 Estimated CrCl and GFR - Last 168 Hours 04/03/22 04/04/22 20:19 06:07 Estim Creat Clear Calc 121.9 118.1 Estimated GFR > 60 > 60 Vancomycin Loading Dose: 1750mg X 1 Current Vancomycin Dosing Regimen: 1000mg Q12H Vancomycin Monitoring using AUC goal of 400 - 600 range with trough as surrogate marker: 441mg/L Date and Time for next Vancomycin Level to be drawn: 04/05/22 @1300 Pharmacist Comments on Vancomycin Plan: Due to dose timing, getting level after 2 doses to monitor appropriately Vancomycin dosing will take advantage of [employer] as a clinical decision support tool that uses Bayesian modeling to calculate individual patient's pharmacokinetic parameters and forecast the patient's drug concentration time course with the target goal AUC 24 range of 400 - 600 mg/L/hr.
[2022-04-04] MEDS: methADONE HCl 20 MG/2 ML ORAL.CONC 55 MG PO (14:16)
[2022-04-04] MEDS: Gabapentin 300 MG CAPSULE PO ×2 (14:16→19:29)
[2022-04-04] MEDS: vancomycin HCL 1,000 MG, vancomycin HCL 750 MG in 0.9 % Sodium Chloride 500 ML 267.5 MG IV (14:17)
--- NOTE | 2022-04-04 14:20 | PC.NURSE ---
patient a&ox3, cafeteria monitor intact, vss, ivf running per order, pt started on vanco per order, call rehman within reach, will continue to monitor
--- NOTE | 2022-04-04 15:56 | PC.NURSE ---
attempted to call report to the floor, nobody answered, charge nurse aware, attempted to tiger text nurse as well. will attempt to call gain
--- NOTE | 2022-04-04 16:14 | PC.NURSE ---
report called to the floor
[2022-04-04] MEDS: cefTRIAXone sodium 1 GM in 0.9 % Sodium Chloride 50 ML IV (19:28)
[2022-04-04] MEDS: Azithromycin 500 MG in 0.9 % Sodium Chloride 250 ML 125 MG IV (21:21)
[2022-04-05 02:45] VITALS: BP 125/70; PULSE 82; RESP 17; TEMP 36.6; O2SAT 93
[2022-04-05] MEDS: vancomycin HCL 1,000 MG in 0.9 % Sodium Chloride 250 ML 270 MG IV (03:16)
[2022-04-05] MEDS: 0.9 % Sodium Chloride 1,000 ML 100 ML IVCONT ×2 (06:00→14:32)
[2022-04-05 06:27] LABS: MANUAL DIFF FLAG NO
[2022-04-05 06:35] LABS: Basophils Percent Auto 0.3 % (0-2); Eosinophils Absolute Auto 0.1 X10*3/uL (0.0-0.4); Hematocrit 23.3 % (42.0-52.0); Hemoglobin 7.6 g/dl (14.0-18.0); Imm Gran Pct Auto 1.4 % (0.0-0.4); Lymphocytes Absolute Auto 0.7 X10*3/uL (1.2-4.9); Lymphocytes Percent Auto 9.6 % (20-40); Mean Corpuscular HGB Conc 32.6 g/dl (31.0-36.0); Mean Corpuscular Volume 79.8 fL (80.0-98.0); Mean Platelet Volume 8.7 fL (9.4-12.4); Monocytes Absolute Auto 0.9 X10*3/uL (0.1-1.2); Monocytes Percent Auto 12.5 % (2-11); Neutrophils Absolute Auto 5.4 x10*3/uL (2.0-8.3); Neutrophils Percent Auto 75.2 % (45-73); Red Blood Count 2.92 X10*6/uL (4.60-5.80); Red Cell Distribution Width 16.9 % (11.0-16.0); White Blood Count 7.2 X10*3/uL (4.8-10.8)
[2022-04-05 06:38] LABS: Platelet Count 93 X10*3/uL (160-400)
[2022-04-05 06:53] LABS: Anion Gap 12 (12-20); Blood Urea Nitrogen 14 mg/dL (9-16); Calcium 7.8 mg/dL (8.4-10.2); Carbon Dioxide 20 mmol/L (22-29); Chloride 105 mmol/L (96-108); Creatinine Clr Calc Pharmacy 114.5; Estimated Glomerular Filt Rate > 60; Glucose Random 82 mg/dL (60-115); Potassium 4.4 mmol/L (3.3-5.1); Sodium 133 mmol/L (135-145)
[2022-04-05 07:19] VITALS: BP 119/74; PULSE 83; RESP 18; TEMP 36.9; O2SAT 95
[2022-04-05] MEDS: methADONE HCl 20 MG/2 ML ORAL.CONC 55 MG PO (08:24)
[2022-04-05] MEDS: Gabapentin 300 MG CAPSULE PO ×3 (08:24→21:58)
[2022-04-05] MEDS: Ferrous Sulfate 324 MG TABLET.DR PO (08:24)
[2022-04-05] MEDS: Nicotine Polacrilex 2 MG GUM BUCCAL (08:43)
[2022-04-05 08:58] LABS: Magnesium 1.8 mg/dL (1.6-2.6)
--- NOTE | 2022-04-05 12:24 | P.CONCA_ITS ---
History of Present Illness History of Present Illness Date of Service: 04/05/22 Requesting physician: Zeny Fernandez Consult reason: other (Bacteremia) Chief complaint: cough Narrative: I was consulted to see this patient because of Streptococcus bacteremia. Underwent echocardiogram which shows possible vegetation of the mitral valve. Patient requested to undergo LINDSAY. Patient with prior history of IV drug abuse, with heroin and cocaine, he said last use 2 months ago. He came to the hospital with significant back pain. He has history with spinal stenosis and says that the pain got severely worse and he came to the emergency room. Workup he was noted to be significantly anemic with no obvious bleeding. Blood cultures were drawn and this was positive for Streptococcus species. He has diffuse macular papular rash in the upper chest area. He denies any focal neurologic deficits. His main complaint currently is a pain. When he came in he had a temperature of 101 degrees and therefore he had blood cultures drawn Review of Systems Constitutional: Constitutional: Reports fatigue Eyes: Eyes: Reports no additional eye complaints Cardiovascular: Cardiovascular: Reports no additional cardiovascular complaints Respiratory: Respiratory: Reports no additional respiratory complaints Gastrointestinal: Gastrointestinal: Reports no additional gastrointestinal complaints Musculoskeletal: Musculoskeletal: Reports back pain Integumentary/Breasts: Skin/Breast: Reports system reviewed and no additional complaints, except as docu Neurologic: Reports system reviewed and no additional complaints, except as documented Psychiatric: Psychiatric: Reports no additional psychiatric complaints Endocrine: Endocrine: Reports no additional endocrine complaints and Reports f atigue Hematologic/Lymphatic: Hematologic/Lymphatic: Reports no additional hematologic/lymphatic complaints Allergic/Immunologic: Allergic/Immunologic: Reports no additional allergic/immunologic complaints [facility] Past Medical History Medical History Alcohol use disorder Mood disorder Pneumonia Tobacco use disorder Social History Social History Household Members: None Housing: Other Housing Other:: homeless Do you presently have visiting nurse or other home services: No Patient Tobacco Use Status: Never used Tobacco Substance Use Type: Crack/Cocaine service: No Current occupational status: unemployed Meds Allergies Allergy/AdvReac Type Severity Reaction Status Date / Time No Known Allergies Allergy Verified 04/03/22 19:46 Active Medications: Current Medications Acetaminophen (Acetaminophen 325 Mg Tablet) 650 mg PO Q6H PRN PRN Reason: Pain, Mild (Pain Scale 1-3) Ferrous Sulfate (Ferrous Sulfate 324 Mg Tablet.) 324 mg PO DAILY [facility] Last Admin: 04/05/22 08:24 Dose: 324 mg Gabapentin (Gabapentin 300 Mg Capsule) 300 mg PO TID [facility] Last Admin: 04/05/22 08:24 Dose: 300 mg Sodium Chloride (Ns) 1,000 mls @ 100 mls/hr IVCONT .Q10H [facility] Last Admin: 04/05/22 06:00 Dose: 100 mls/hr Ceftriaxone Sodium 1 gm/ (Sodium Chloride) 50 mls @ 100 mls/hr IV Q24H [facility] Last Infusion: 04/04/22 20:31 Dose: Infused Azithromycin 500 mg/ Sodium (Chloride) 250 mls @ 125 mls/hr IV Q24H [facility] Last Infusion: 04/04/22 23:45 Dose: Infused Vancomycin HCl 1,000 mg/ (Sodium Chloride) 270 mls @ 270 mls/hr IV Q12H [facility] Last Infusion: 04/05/22 04:55 Dose: Infused Melatonin (Melatonin 3 Mg Tablet) 6 mg PO BEDTIME PRN PRN Reason: Insomnia Methadone HCl (Methadone Hcl 20 Mg/2 Ml Oral.Conc) 55 mg PO DAILY [facility] Last Admin: 04/05/22 08:24 Dose: 55 mg Nicotine Polacrilex (Nicotine Polacrilex 2 Mg Gum) 2 mg BUCCAL Q1H PRN PRN Reason: amaury crav Last Admin: 04/05/22 08:43 Dose: 2 mg Ondansetron HCl (Ondansetron Hcl 4 Mg/2 Ml Vial) 4 mg IVPUSH Q8H PRN PRN Reason: Nausea and Vomiting Pharmacy Consult (Consult Rx Perform Med Rec) 1 each MISCELLANE ONCE PRN PRN Reason: Consult order Pharmacy Consult (Consult Rx Vancomycin Dosing) 1 each MISCELLANE DAILY PRN PRN Reason: Consult order Sodium Chloride (0.9 % Sodium Chloride Flush 3 Ml Syringe) 3 ml IVFLUSH QSHIFT [facility] Last Admin: 04/05/22 07:04 Dose: Not Given Trazodone HCl (Trazodone Hcl 50 Mg Tablet) 50 mg PO BEDTIME [facility] Last Admin: 04/04/22 22:10 Dose: Not Given Home Medications Medication Instructions Recorded Confirmed Last Taken Type acetaminophen 500 mg tablet 1 tab PO Q6H PRN Pain 04/04/22 04/04/22 Unknown History ferrous sulfate 325 mg (65 mg 325 mg PO DAILY 04/04/22 04/04/22 Unknown History iron) tablet (FeroSul) gabapentin 300 mg capsule 1 cap PO TID 04/04/22 04/04/22 Unknown History ibuprofen 400 mg tablet 1 tab PO Q6H PRN Pain 04/04/22 04/04/22 Unknown History methadone 10 mg/mL oral 55 mg PO DAILY 04/04/22 04/04/22 04/03/22 History concentrate (Methadose) 55 mg trazodone 50 mg tablet 1 tab PO BEDTIME 04/04/22 04/04/22 Unknown History Physical Exam Vital Signs: Vital Signs: Last Vital Signs Temp 98.5 F 04/05/22 07:19 Pulse 83 04/05/22 07:19 Resp 18 04/05/22 07:19 BP 119/74 04/05/22 07:19 Pulse Ox 95 04/05/22 07:19 O2 Del Method 04/05/22 07:19 BMI result Body Mass Index 23.6 Const: General: cooperative, comfortable, alert and awake Nutritional Appearance: average body habitus Orientation/consciousness: patient oriented x3 HEENT: Head: Yes normocephalic and Yes atraumatic Neck: Neck: Yes trachea midline, Yes supple and Yes no JVD Resp: Effort & Inspection: normal respiratory effort Auscultation: clear to auscultation bilaterally Cardio: Jugular venous distension: no JVD Palpation: normal PMI Rate: regular rate Rhythm: regular rhythm Heart sounds: S1 normal heart sound present, S2 normal heart sound present, no click, no gallops and Murmur heart sound present systolic at the apex GI: Auscultation: normal bowel sounds Skin: Lesions: lesion noted (Maculopapular rash diffusely) Neuro: General: patient oriented x3 and no focal motor deficits Extrem: General: Yes no clubbing, cyanosis or edema Objective Labs and Meds 04/05/22 05:51 04/05/22 05:51 Lab results: Laboratory Results - last 24 hr 04/05/22 04/05/22 05:51 05:51 WBC 7.2 RBC 2.92 L Hgb 7.6 L Hct 23.3 L MCV 79.8 L MCH 26.0 L MCHC 32.6 RDW 16.9 H Plt Count 93 L MPV 8.7 L Immature Gran % (Auto) 1.4 H Neut % (Auto) 75.2 H Lymph % (Auto) 9.6 L [place] % (Auto) 12.5 H Eos % (Auto) 1.0 Baso % (Auto) 0.3 Lymph # (Auto) 0.7 L [place] # (Auto) 0.9 Eos # (Auto) 0.1 Baso # (Auto) 0.0 Abs Immat Gran (auto) 0.10 H Absolute Neuts (auto) 5.4 Absolute Nucleated RBC 0.000 Nucleated RBC % (auto) 0.0 Sodium 133 L Potassium 4.4 Chloride 105 Carbon Dioxide 20 L Anion Gap 12 BUN 14 Creatinine 0.66 Estim Creat Clear Calc 114.5 Estimated GFR > 60 Random Glucose 82 Calcium 7.8 L Magnesium 1.8 Assessment and Plan (1) Bacteremia: Status: Acute Patient admitted with significant back pain with febrile episode of 201 with blood cultures positive for Streptococcus bacteremia. There is echo cardiographic evidence of possible mitral valve vegetation. Possible back pain related diskitis/epidural abscess. This needs to be further worked up. Definitely has risk factor of prior IV IV drug abuse and not sure if he is currently still using IV drugs. Strongly recommended against using IV drugs. He said he understands. Needs further evaluation of his mitral valve as there is a murmur that may suggest mitral regurgitation. Would suggest to transesophageal echocardiogram to further assess for details of the mitral valve anatomy as well as vegetation confirm the findings as well as the size. If he has large mitral valve vegetation may require further evaluation by Cardiothoracic surgery and/or if he has destruction of the mitral valve leaflets. This was discussed with him in details. Was not too excited about the same. Continue antibiotics aggressively. Id consult should be obtained. Will schedule for LINDSAY tomorrow. Discussed the risks, benefits, alternatives 2nd open to procedure. He understands and agrees. Time Spent With Patient Time: Total time managing care of this patient today ____ minutes. Procedures Date of Service Date of Service: 04/05/22
--- NOTE | 2022-04-05 12:53 | MHC.CM.PN ---
Per discussion at rounds: Pt will likely need 6 weeks of IV ATB for tx of bacteremia: ? endocarditis: LINDSAY scheduled for 04/06. No PICC yet. Referrals sent to [facility] and [facility] should he require LT ATB. Barriers to STR include active substance use, homeless status and hx of noncompliance. CM to follow.
[2022-04-05 13:44] LABS: Vancomycin Trough 9.4 mcg/mL (10.0-20.0)
--- NOTE | 2022-04-05 13:58 | HE.PHANOTE ---
RE: VANCO DOSING Trough came back at 9.4 with an auc of 291. Changed dose to 1250 q12 with expected auc of 403 after next dose. Will get another trough before dose on 04/06 at 1500.
[2022-04-05] MEDS: vancomycin HCL 1,250 MG in 0.9 % Sodium Chloride 250 ML 166.67 MG IV (14:27)
[2022-04-05 14:52] VITALS: BP 111/71; PULSE 83; RESP 18; TEMP 37.1; O2SAT 95
--- NOTE | 2022-04-05 14:58 | P.PNIM_ITS ---
Subjective Subjective Date of Service: 04/05/22 Interval History: no fever cough improved no hypoxia does inject cocaine + heroin c/o low back pain, states hx spinal stenosis Review of Systems Review of Systems: Yes all other systems are reviewed and are negative Physical Exam Vital Signs: Vital Signs: Last Vital Signs Temp 98.7 F 04/05/22 14:52 Pulse 83 04/05/22 14:52 Resp 18 04/05/22 14:52 BP 111/71 04/05/22 14:52 Pulse Ox 95 04/05/22 14:52 O2 Del Method 04/05/22 14:52 BMI result Body Mass Index 23.6 Const: Other: Gen: in no acute distress HEENT: sclera anicteric, moist mucus membranes Neck: supple Lungs: clear to auscultation bilaterally Heart: regular rate and rhythm, soft systolic murmur at apex Abd: soft, non-tender, non-distended Ext: no edema Skin: warm/well-perfused Neuro: alert and oriented x3, no focal findings Psych: appropriate affect Objective Data Active Medications Acetaminophen (Acetaminophen 325 Mg Tablet) 650 mg PO Q6H PRN PRN Reason: Pain, Mild (Pain Scale 1-3) Ferrous Sulfate (Ferrous Sulfate 324 Mg Tablet.) 324 mg PO DAILY [facility] Last Admin: 04/05/22 08:24 Dose: 324 mg Documented By: PAT Gabapentin (Gabapentin 300 Mg Capsule) 300 mg PO TID [facility] Last Admin: 04/05/22 14:28 Dose: 300 mg Documented By: PAT Sodium Chloride (Ns) 1,000 mls @ 100 mls/hr IVCONT .Q10H [facility] Last Admin: 04/05/22 14:32 Dose: 100 mls/hr Documented By: PAT Ceftriaxone Sodium 1 gm/ (Sodium Chloride) 50 mls @ 100 mls/hr IV Q24H [facility] Last Infusion: 04/04/22 20:31 Dose: 0 mls/hr Documented By: GEOVANI Azithromycin 500 mg/ Sodium (Chloride) 250 mls @ 125 mls/hr IV Q24H [facility] Last Infusion: 04/04/22 23:45 Dose: 0 mls/hr Documented By: GEOVANI Vancomycin HCl 1,250 mg/ (Sodium Chloride) 250 mls @ 166.667 mls/hr IV Q12H [facility] Last Admin: 04/05/22 14:27 Dose: 166.67 mls/hr Documented By: PAT Melatonin (Melatonin 3 Mg Tablet) 6 mg PO BEDTIME PRN PRN Reason: Insomnia Methadone HCl (Methadone Hcl 20 Mg/2 Ml Oral.Conc) 55 mg PO DAILY [facility] Last Admin: 04/05/22 08:24 Dose: 55 mg Documented By: PAT Nicotine Polacrilex (Nicotine Polacrilex 2 Mg Gum) 2 mg BUCCAL Q1H PRN PRN Reason: amaury crav Last Admin: 04/05/22 08:43 Dose: 2 mg Documented By: PAT Ondansetron HCl (Ondansetron Hcl 4 Mg/2 Ml Vial) 4 mg IVPUSH Q8H PRN PRN Reason: Nausea and Vomiting Pharmacy Consult (Consult Rx Perform Med Rec) 1 each MISCELLANE ONCE PRN PRN Reason: Consult order Pharmacy Consult (Consult Rx Vancomycin Dosing) 1 each MISCELLANE DAILY PRN PRN Reason: Consult order Sodium Chloride (0.9 % Sodium Chloride Flush 3 Ml Syringe) 3 ml IVFLUSH QSHIFT [facility] Last Admin: 04/05/22 07:04 Dose: Not Given Documented By: PAT Non-Admin Reason: IV Running Trazodone HCl (Trazodone Hcl 50 Mg Tablet) 50 mg PO BEDTIME [facility] Last Admin: 04/04/22 22:10 Dose: Not Given Documented By: GEOVANI Non-Admin Reason: Patient Refused Labs 04/05/22 05:51 04/05/22 05:51 Labs: Laboratory Results - last 24 hr 04/05/22 04/05/22 04/05/22 05:51 05:51 13:20 MCV 79.8 L MCH 26.0 L MCHC 32.6 RDW 16.9 H Plt Count 93 L MPV 8.7 L Immature Gran % (Auto) 1.4 H Neut % (Auto) 75.2 H Lymph % (Auto) 9.6 L [place] % (Auto) 12.5 H Eos % (Auto) 1.0 Baso % (Auto) 0.3 Lymph # (Auto) 0.7 L [place] # (Auto) 0.9 Eos # (Auto) 0.1 Baso # (Auto) 0.0 Abs Immat Gran (auto) 0.10 H Absolute Neuts (auto) 5.4 Absolute Nucleated RBC 0.000 Nucleated RBC % (auto) 0.0 Anion Gap 12 Estim Creat Clear Calc 114.5 Estimated GFR > 60 Random Glucose 82 Calcium 7.8 L Magnesium 1.8 Vancomycin Trough 9.4 L Microbiology Microbiology Results: Microbiology 04/03/22 20:19 Blood Culture - Preliminary Blood - Venous Streptococcus species 04/03/22 20:19 Blood Culture - Preliminary Blood - Venous Streptococcus species Assessment and Plan (1) Transaminitis: Status: Acute [facility] hospital d#2 61-year-old male with polysubstance abuse presenting with cough, fever, chills, and low back pain residing at [facility] [[facility]] admitted for multifocal pneumonia with sepsis, found to have GPC bacteremia # sepsis due to bacteremia + PNA - ceftriaxone 2/5-, azithromycin 2/5-, vancomycin 2/- - await speciation/susceptibilities, surveillance Cx - TTE with possible mitral valve vegetation, Cardiology consulted, NPO for LINDSAY tomorrow # low back pain - MRI to r/o SEA # thrombocytopenia, mild - ?HCV. monitor CBC. # polysubstance abuse - continue methadone - counseled against use of substances - screen HBV/HCV/HIV # CHEN, FOBT+ - IV PPI, GI consultation # tobacco abuse - NRT # mood disorder - trazodone # hypoNa - Na improved # VTE ppx: SCDs # dispo: STR eventually In my clinical judgment, the patient requires continued inpatient hospitalization for the following reasons: IV ABX, LINDSAY, SEA r/o Time Spent With Patient Time: Total time managing care of this patient today __40__ minutes. Quality Stroke Does the patient have a stroke diagnosis?: No VTE Prior VTE?: No VTE Risk Level:: Medical - moderate - high VTE Device Contraindication: N/A - Device Ordered VTE Drug Contraindication: Treatment Not Indicated
--- NOTE | 2022-04-05 15:02 | P.CNID_ITS ---
History of Present Illness Data of Consult Service Date: 04/05/22 Requesting physician: Stefano Ch Primary Care Provider: Reena Mcdermott MD HPI Reason for consult: strep endocarditis He presents with few days weakness and fever to 101. He uses cocaine and heroin and has been detox for eight weeks. He has blood cultures strep x2 . 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 His HIV test is pending. Review of Systems Review of Systems: Yes all other systems are reviewed and are negative [facility] Past Medical History Medical History (Updated 04/05/22 @ 15:29 by Nesha Camargo MD) Alcohol use disorder Endocarditis Mood disorder Pneumonia Sepsis Tobacco use disorder Social History Social History Household Members: None Housing: Other Housing Other:: homeless Do you presently have visiting nurse or other home services: No Patient Tobacco Use Status: Never used Tobacco Substance Use Type: Crack/Cocaine service: No Current occupational status: unemployed Meds Allergies Allergy/AdvReac Type Severity Reaction Status Date / Time No Known Allergies Allergy Verified 04/03/22 19:46 Active Medications: Current Medications Acetaminophen (Acetaminophen 325 Mg Tablet) 650 mg PO Q6H PRN PRN Reason: Pain, Mild (Pain Scale 1-3) Ferrous Sulfate (Ferrous Sulfate 324 Mg Tablet.) 324 mg PO DAILY [facility] Last Admin: 04/05/22 08:24 Dose: 324 mg Gabapentin (Gabapentin 300 Mg Capsule) 300 mg PO TID [facility] Last Admin: 04/05/22 14:28 Dose: 300 mg Sodium Chloride (Ns) 1,000 mls @ 100 mls/hr IVCONT .Q10H [facility] Last Admin: 04/05/22 14:32 Dose: 100 mls/hr Ceftriaxone Sodium 1 gm/ (Sodium Chloride) 50 mls @ 100 mls/hr IV Q24H [facility] Last Infusion: 04/04/22 20:31 Dose: Infused Azithromycin 500 mg/ Sodium (Chloride) 250 mls @ 125 mls/hr IV Q24H [facility] Last Infusion: 04/04/22 23:45 Dose: Infused Vancomycin HCl 1,250 mg/ (Sodium Chloride) 250 mls @ 166.667 mls/hr IV Q12H [facility] Last Admin: 04/05/22 14:27 Dose: 166.67 mls/hr Melatonin (Melatonin 3 Mg Tablet) 6 mg PO BEDTIME PRN PRN Reason: Insomnia Methadone HCl (Methadone Hcl 20 Mg/2 Ml Oral.Conc) 55 mg PO DAILY [facility] Last Admin: 04/05/22 08:24 Dose: 55 mg Nicotine Polacrilex (Nicotine Polacrilex 2 Mg Gum) 2 mg BUCCAL Q1H PRN PRN Reason: amaury crav Last Admin: 04/05/22 08:43 Dose: 2 mg Ondansetron HCl (Ondansetron Hcl 4 Mg/2 Ml Vial) 4 mg IVPUSH Q8H PRN PRN Reason: Nausea and Vomiting Pharmacy Consult (Consult Rx Perform Med Rec) 1 each MISCELLANE ONCE PRN PRN Reason: Consult order Pharmacy Consult (Consult Rx Vancomycin Dosing) 1 each MISCELLANE DAILY PRN PRN Reason: Consult order Sodium Chloride (0.9 % Sodium Chloride Flush 3 Ml Syringe) 3 ml IVFLUSH QSHIFT [facility] Last Admin: 04/05/22 15:00 Dose: Not Given Trazodone HCl (Trazodone Hcl 50 Mg Tablet) 50 mg PO BEDTIME [facility] Last Admin: 04/04/22 22:10 Dose: Not Given Home Medications Medication Instructions Recorded Confirmed Last Taken Type acetaminophen 500 mg tablet 1 tab PO Q6H PRN Pain 04/04/22 04/04/22 Unknown History ferrous sulfate 325 mg (65 mg 325 mg PO DAILY 04/04/22 04/04/22 Unknown History iron) tablet (FeroSul) gabapentin 300 mg capsule 1 cap PO TID 04/04/22 04/04/22 Unknown History ibuprofen 400 mg tablet 1 tab PO Q6H PRN Pain 04/04/22 04/04/22 Unknown History methadone 10 mg/mL oral 55 mg PO DAILY 04/04/22 04/04/22 04/03/22 History concentrate (Methadose) 55 mg trazodone 50 mg tablet 1 tab PO BEDTIME 04/04/22 04/04/22 Unknown History Physical Exam Vital Signs: Vital Signs: Last Vital Signs Temp 98.7 F 04/05/22 14:52 Pulse 83 04/05/22 14:52 Resp 18 04/05/22 14:52 BP 111/71 04/05/22 14:52 Pulse Ox 95 04/05/22 14:52 O2 Del Method 04/05/22 14:52 BMI result Body Mass Index 23.6 Const: General: cooperative HEENT: Head: Yes normal to inspection Face and sinus: Yes normal facial exam Mouth: Normal oral and palatal mucosa present Teeth and gingiva: dentition normal Eyes: General: appearance normal, both eyes and all related structures Pupils: Equal, round and reactive pupils present Resp: Effort & Inspection: normal respiratory effort Cardio: Rate: regular rate Rhythm: regular rhythm Heart sounds: Murmur heart sound present (2/6 RONAK) GI: Palpation (GI): Soft to palpation and nontender : General: Yes no CVA tenderness Back/Spine/Pelvis: Back: no CVA tenderness Skin: General skin exam: no rashes or lesions noted Neuro: General: moves all extremities Cranial nerves: Yes Equal, round and reactive pupils present Extrem: General: Yes normal to inspection Psych: Appearance: grossly normal Results Labs 04/05/22 05:51 04/05/22 05:51 Labs: Short CBC 04/05/22 Range/Units 05:51 WBC 7.2 (4.8-10.8) X10*3/uL Hgb 7.6 L (14.0-18.0) g/dl Hct 23.3 L (42.0-52.0) % Plt Count 93 L (160-400) X10*3/uL BMP 04/05/22 05:51 Sodium 133 L Potassium 4.4 Chloride 105 Carbon Dioxide 20 L BUN 14 Creatinine 0.66 Calcium 7.8 L Microbiology Microbiology Results: Microbiology 04/03/22 20:19 Blood - Venous Blood Culture - Preliminary Streptococcus species 04/03/22 20:19 Blood - Venous Blood Culture - Preliminary Streptococcus species Assessment and Plan (1) Bacteremia: Status: Acute He has strep bacteremia cause of endocarditis. There is concern over group A strep or enterococcus possible There appears to be mitral valve endocarditis with vegetation on anterior leaflet mitral valve. (2) Alcohol use disorder: Status: Acute (3) Sepsis: Status: Acute Would (4) Endocarditis: Status: Acute Plan Continue Ceftriaxone cover typeable strep like Group A. Would also continue Vancomycin for now in case enterococcal strep. Await cultures Await HIV test No indication seen for azithromycin. Reported LINDSAY tomorrow Time Spent With Patient Time: Total time managing care of this patient today ____ minutes.
--- NOTE | 2022-04-05 16:20 | PM.EVENT ---
Event Note Date of Service: 04/06/22 Event Note: GI consult dictated Iron deficiency anemia with stools occult positive. No signs of active bleeding at this time. Stool was dark at the [facility] on admission and pt reports hematochezia as an outpatient. Recommend egd and colonscopy at some point, currently undergoing evaluation for SBE, LINDSAY pending. Time Spent With Patient Time: Total time managing care of this patient today ____ minutes.
[2022-04-05 19:08] VITALS: BP 125/76; PULSE 88; RESP 18; TEMP 37.6; O2SAT 94
--- NOTE | 2022-04-05 19:24 | CONS_ITS ---
DATE OF SERVICE: 04/05/2022 REFERRING PHYSICIAN: Stefano Ch MD REASON FOR CONSULTATION: Iron deficiency anemia and Hemoccult-positive stools. HISTORY OF PRESENT ILLNESS: The patient is a 61-year-old man, who was admitted to the hospital on April 04, after presenting to the emergency room with complaints of back pain, fevers, chills, and weakness. He was noted on admission to have a hematocrit of 23.6, which has remained stable with no signs of active bleeding. Hemoccult testing on digital rectal examination done in the emergency room was positive and described as dark stool. The patient also describes several episodes of hematochezia over the past few days while at a detox center. He has a history of substance abuse and states he has not use for 2 months. He is currently undergoing evaluation for bacterial endocarditis. He describes undergoing upper endoscopy and colonoscopy approximately 10 years ago in the [facility], which he states were both negative. He has no complaints of heartburn or abdominal pain. Iron studies have shown an iron saturation of 11% consistent with iron deficiency anemia. He has also had elevated liver function tests and has hepatitis serologies pending. He does have a history of intravenous drug usage as above. PAST MEDICAL HISTORY: 1. Substance abuse as above. 2. Back pain consistent with history of back surgery. CURRENT MEDICATIONS: Current medication list is reviewed in the chart. ALLERGIES: THERE ARE NONE REPORTED. FAMILY HISTORY: This is negative for GI malignancy by his report. SOCIAL HISTORY: He does have a history of substance abuse as above. He denies recent alcohol use, but has had alcohol use in the past and does have a history of tobacco use. REVIEW OF SYSTEMS: SKIN: No pruritus. HEENT: Negative. CARDIOPULMONARY: No shortness of breath or chest pain. GASTROINTESTINAL: As above. GENITOURINARY: Negative. NEUROPSYCHIATRIC: Negative. PHYSICAL EXAMINATION: GENERAL: Shows a pleasant male, lying in bed. VITAL SIGNS: Reviewed in the electronic medical record and are stable. SKIN: Anicteric. HEENT: Shows no scleral icterus. NECK: Without lymphadenopathy or thyromegaly. LUNGS: Clear. HEART: Shows a regular rate and rhythm. I do not appreciate a murmur. ABDOMEN: Soft without focal masses or tenderness. Bowel sounds are present. No organomegaly is noted. EXTREMITIES: Without edema. LABORATORY STUDIES: Including blood work and x-rays are reviewed. IMPRESSION: Iron deficiency anemia with Hemoccult-positive stools. He does not show signs of active bleeding at this time, and his hematocrit has been stable since admission. He should at some point, undergo upper endoscopy and colonoscopy for further evaluation. I discussed this with him. He is scheduled for further evaluation of his possible bacterial endocarditis tomorrow with transesophageal echocardiography and endoscopy could be arranged later in the week or as an outpatient pending his clinical course. Thank you for asking me to see him. I will follow him in the hospital with you. MD EVAN Tsai/ROBERT / [phone]
[2022-04-05] MEDS: cefTRIAXone sodium 1 GM in 0.9 % Sodium Chloride 50 ML IV (21:57)
[2022-04-05] MEDS: traZODone HCL 50 MG TABLET PO (21:58)
--- NOTE | 2022-04-05 22:30 | PC.NURSE ---
Pt went to MRI but was unable to complete it due to one of the yes screening questions he answered/. qc lab technician said he notified ordering provider.
[2022-04-06] MEDS: vancomycin HCL 1,250 MG in 0.9 % Sodium Chloride 250 ML 166.67 MG IV ×2 (02:32→15:13)
[2022-04-06 02:46] LABS: Amphetamine Screen Urine Not Detected (Not Detect); Barbiturates, Urine Not Detected (Not Detect); Benzodiazepines Screen Urine Not Detected (Not Detect); Cannabinoid Screen Urine Not Detected (Not Detect); Cocaine Screen Urine Not Detected (Not Detect); Fentanyl, urine POSITIVE (Not Detect); Opiate Screen Urine Not Detected (Not Detect); Phencyclidine Screen Urine Not Detected (Not Detect)
[2022-04-06 03:50] VITALS: BP 112/70; PULSE 84; RESP 20; TEMP 37.3; O2SAT 93
[2022-04-06 06:50] LABS: Hematocrit 22.9 % (42.0-52.0); Hemoglobin 7.6 g/dl (14.0-18.0); Mean Corpuscular HGB Conc 33.2 g/dl (31.0-36.0); Mean Corpuscular Hemoglobin 26.3 pg (27.0-33.0); Mean Corpuscular Volume 79.2 fL (80.0-98.0); Mean Platelet Volume 8.8 fL (9.4-12.4); Red Blood Count 2.89 X10*6/uL (4.60-5.80); Red Cell Distribution Width 16.7 % (11.0-16.0); White Blood Count 6.1 X10*3/uL (4.8-10.8)
[2022-04-06 06:59] LABS: Platelet Count 92 X10*3/uL (160-400)
[2022-04-06 07:02] LABS: Alanine Aminotransferase 71 U/L (0-40); Albumin Level 2.1 g/dL (3.5-5.0); Alkaline Phosphatase 174 U/L (39-117); Anion Gap 12 (12-20); Aspartate Amino Transferase 107 U/L (5-37); Bilirubin Total 0.7 mg/dL (0.0-1.0); Blood Urea Nitrogen 10 mg/dL (9-16); Calcium 7.7 mg/dL (8.4-10.2); Carbon Dioxide 19 mmol/L (22-29); Chloride 105 mmol/L (96-108); Creatinine Clr Calc Pharmacy 118.1; Estimated Glomerular Filt Rate > 60; Glucose Random 94 mg/dL (60-115); Magnesium 1.6 mg/dL (1.6-2.6); Potassium 4.2 mmol/L (3.3-5.1); Sodium 132 mmol/L (135-145); Total Protein 6.8 g/dL (6.5-8.0)
[2022-04-06 07:45] LABS: HBc Num1 2.98 S/CO (0.00-0.79); HBsAGNum1 0.26 S/CO (0.00-0.99); HIV AB/AG Nonreactive (Nonreactive); HIV Num 1 0.08 S/CO (0.00-0.99); Hepatitis B Surface Antigen Negative (Negative); ~HepC Num1 12.34 S/CO (0.00-0.79); ~Hepatitis B Surface Antibody REACTIVE (Nonreactive); ~Hepatitis C Antibody Reactive (Nonreactive)
[2022-04-06 08:00] VITALS: BP 110/64; PULSE 82; RESP 18; TEMP 36.6; O2SAT 94
[2022-04-06] MEDS: methADONE HCl 20 MG/2 ML ORAL.CONC 55 MG PO (08:01)
[2022-04-06] MEDS: Gabapentin 300 MG CAPSULE PO ×3 (08:01→21:07)
[2022-04-06] MEDS: Ferrous Sulfate 324 MG TABLET.DR PO (08:01)
[2022-04-06] MEDS: 0.9 % Sodium Chloride 1,000 ML 75 ML IVCONT (08:24)
[2022-04-06 09:51] LABS: HBc Num2 2.85 S/CO; HBc Num3 2.87 S/CO; Hepatitis B Core Antibody Reactive (Nonreactive)
--- NOTE | 2022-04-06 11:54 | P.PNIM_ITS ---
Subjective Subjective Date of Service: 04/06/22 Interval History: cough improved chronic low back pain; said he had spinal stimulator removed previously NPO for LINDSAY no fever Review of Systems Review of Systems: Yes all other systems are reviewed and are negative Physical Exam Vital Signs: Vital Signs: Last Vital Signs Temp 97.8 F 04/06/22 08:00 Pulse 82 04/06/22 08:00 Resp 18 04/06/22 08:00 BP 110/64 04/06/22 08:00 Pulse Ox 94 04/06/22 08:00 O2 Del Method 04/06/22 08:00 BMI result Body Mass Index 23.6 Gen: in no acute distress HEENT: sclera anicteric, moist mucus membranes Neck: supple Lungs: clear to auscultation bilaterally Heart: regular rate and rhythm, soft systolic murmur at apex Abd: soft, non-tender, non-distended Ext: no edema Skin: warm/well-perfused Neuro: alert and oriented x3, no focal findings Psych: appropriate affect Objective Data Active Medications Acetaminophen (Acetaminophen 325 Mg Tablet) 650 mg PO Q6H PRN PRN Reason: Pain, Mild (Pain Scale 1-3) Ferrous Sulfate (Ferrous Sulfate 324 Mg Tablet.) 324 mg PO DAILY [facility] Last Admin: 04/06/22 08:01 Dose: 324 mg Documented By: ESVIN Gabapentin (Gabapentin 300 Mg Capsule) 300 mg PO TID [facility] Last Admin: 04/06/22 08:01 Dose: 300 mg Documented By: ESVIN Ceftriaxone Sodium 1 gm/ (Sodium Chloride) 50 mls @ 100 mls/hr IV Q24H [facility] Last Infusion: 04/05/22 22:00 Dose: 0 mls/hr Documented By: ALEJANDRO Vancomycin HCl 1,250 mg/ (Sodium Chloride) 250 mls @ 166.667 mls/hr IV Q12H [facility] Last Infusion: 04/06/22 04:10 Dose: 0 mls/hr Documented By: ALEJANDRO Sodium Chloride (Ns) 1,000 mls @ 75 mls/hr IVCONT .[id number] [facility] Stop: 04/06/22 21:34 Last Admin: 04/06/22 08:24 Dose: 75 mls/hr Documented By: ESVIN Melatonin (Melatonin 3 Mg Tablet) 6 mg PO BEDTIME PRN PRN Reason: Insomnia Methadone HCl (Methadone Hcl 20 Mg/2 Ml Oral.Conc) 55 mg PO DAILY [facility] Last Admin: 04/06/22 08:01 Dose: 55 mg Documented By: ESVIN Nicotine Polacrilex (Nicotine Polacrilex 2 Mg Gum) 2 mg BUCCAL Q1H PRN PRN Reason: amaury crav Last Admin: 04/05/22 08:43 Dose: 2 mg Documented By: PAT Ondansetron HCl (Ondansetron Hcl 4 Mg/2 Ml Vial) 4 mg IVPUSH Q8H PRN PRN Reason: Nausea and Vomiting Pharmacy Consult (Consult Rx Perform Med Rec) 1 each MISCELLANE ONCE PRN PRN Reason: Consult order Pharmacy Consult (Consult Rx Vancomycin Dosing) 1 each MISCELLANE DAILY PRN PRN Reason: Consult order Sodium Chloride (0.9 % Sodium Chloride Flush 3 Ml Syringe) 3 ml IVFLUSH QSHIFT [facility] Last Admin: 04/06/22 08:01 Dose: Not Given Documented By: ESVIN Non-Admin Reason: IV Running Trazodone HCl (Trazodone Hcl 50 Mg Tablet) 50 mg PO BEDTIME [facility] Last Admin: 04/05/22 21:58 Dose: 50 mg Documented By: SHILO-PIERM Labs 04/06/22 06:02 04/06/22 06:02 Labs: Laboratory Results - last 24 hr 04/04/22 04/05/22 04/06/22 06:07 13:20 00:00 MCV MCH MCHC RDW Plt Count MPV Absolute Nucleated RBC Nucleated RBC % (auto) Anion Gap Estim Creat Clear Calc Estimated GFR Random Glucose Calcium Magnesium Total Bilirubin AST ALT Alkaline Phosphatase Total Protein Albumin Vancomycin Trough 9.4 L Urine Opiates Screen Not Detected Urine Fentanyl Screen POSITIVE H Ur Barbiturates Screen Not Detected Ur Phencyclidine Scrn Not Detected Ur Amphetamines Screen Not Detected U Benzodiazepines Scrn Not Detected Urine Cocaine Screen Not Detected U Marijuana (THC) Screen Not Detected Hep Bs Antigen Negative Hep Bs Antibody REACTIVE Hep B Core Total Ab Reactive Hep B Core IgM Ab Cancelled Hepatitis C Ab (EIA) Reactive H HIV 1&2 Ab/P24 Ag 4thGn Nonreactive 04/06/22 04/06/22 06:02 06:02 MCV 79.2 L MCH 26.3 L MCHC 33.2 RDW 16.7 H Plt Count 92 L MPV 8.8 L Absolute Nucleated RBC 0.000 Nucleated RBC % (auto) 0.0 Anion Gap 12 Estim Creat Clear Calc 118.1 Estimated GFR > 60 Random Glucose 94 Calcium 7.7 L Magnesium 1.6 Total Bilirubin 0.7 AST 107 H ALT 71 H Alkaline Phosphatase 174 H Total Protein 6.8 Albumin 2.1 L Vancomycin Trough Urine Opiates Screen Urine Fentanyl Screen Ur Barbiturates Screen Ur Phencyclidine Scrn Ur Amphetamines Screen U Benzodiazepines Scrn Urine Cocaine Screen U Marijuana (THC) Screen Hep Bs Antigen Hep Bs Antibody Hep B Core Total Ab Hep B Core IgM Ab Hepatitis C Ab (EIA) HIV 1&2 Ab/P24 Ag 4thGn TTE 04/04/22 1. Normal LV systolic function with LVEF of 55-60% with mildly dilated cavity with pseudonormal filling pattern ? 2. Moderately dilated left atrium? 3. Possible vegetation of the anterior mitral leaflet with mild? mitral regurgitation ? 4. Normal RV systolic pressure ? 5. No gross pericardial effusion ? Impressions KUB X-Ray 04/06/22 07:48 IMPRESSION: 1. No neural stimulators seen in the lower thoracic, lumbar or sacral spine. 2. Mild constipation. ? Microbiology Microbiology Results: Microbiology 04/03/22 20:19 Blood Culture - Preliminary Blood - Venous Streptococcus species 04/03/22 20:19 Blood Culture - Preliminary Blood - Venous Streptococcus species Assessment and Plan (1) Transaminitis: Status: Acute Plan hospital d#3 61-year-old male with polysubstance abuse presenting with cough, fever, chills, and low back pain residing at [facility] [[facility]] admitted for multifocal pneumonia with sepsis, found to have GPC bacteremia # sepsis due to bacteremia + PNA - ceftriaxone 2/-, azithromycin 2/-04/05, vancomycin 04/04- - await speciation/susceptibilities [Streptococcus spp. from BCx 04/03], surveillance Cx from 04/06 - TTE with possible mitral valve vegetation, Cardiology consulted, NPO for LINDSAY today # low back pain - MRI to r/o SEA; no evidence of stimulator on KUB # thrombocytopenia, mild - ?HCV. monitor CBC. # polysubstance abuse - continue methadone - counseled against use of substances - HBV immune from prior infection, HCV Ab+ viral load pending, HIV negative # CHEN, FOBT+ - IV PPI, GI consulted, may need EGD + C-scope later on in admission vs outpt depending on clinical course; monitor CBC # tobacco abuse - NRT # mood disorder - trazodone # hypoNa - Na improved # VTE ppx: SCDs # dispo: STR eventually In my clinical judgment, the patient requires continued inpatient hospitalization for the following reasons: IV ABX, LINDSAY, SEA r/o Time Spent With Patient Time: Total time managing care of this patient today ___40_ minutes. Quality Stroke Does the patient have a stroke diagnosis?: No VTE Prior VTE?: No VTE Risk Level:: Medical - moderate - high VTE Device Contraindication: N/A - Device Ordered VTE Drug Contraindication: Treatment Not Indicated
--- NOTE | 2022-04-06 12:11 | MHC.CM.PN ---
Per ROUNDS discussion, Patient is not yet medically cleared for dc (NPO for LINDSAY, needs MRI of Spine); SNF for LT IVABT appears likely and CM will continue to follow.
[2022-04-06 13:35] LABS: Vancomycin Trough 13.4 mcg/mL (10.0-20.0)
--- NOTE | 2022-04-06 13:44 | HE.PHANOTE ---
Vancomcin Dosing Level therapeutic at 13.6 today. Continue current regimen vanco 1250 mg Q12H. next level 04/07 @ 1300. Ludwig MedeirosD
[2022-04-06 14:02] VITALS: BP 112/71; PULSE 79; RESP 16; TEMP 37.4; O2SAT 94
--- NOTE | 2022-04-06 14:28 | PC.NURSE ---
PATIENT WAS CANCELLED PER ANESTHESIA REGARDING PATIENT BEING POSITIVE FOR FENTANYL. PATIENT AWARE OF THE PLAN. TO BE NPO AFTER MIDNIGHT AND RESCHEDULED FOR TOMORROW INSTEAD.
[2022-04-06] MEDS: 0.9 % Sodium Chloride Flush 3 ML SYRINGE IVFLUSH (15:14)
--- NOTE | 2022-04-06 15:18 | PM.PNCARD ---
Subjective Subjective Date of Service: 04/06/22 Principal diagnosis: Streptococcus bacteremia Interval history: Patient has no cardiac symptoms. Hever was postpone today due to his U tox positive for fentanyl as per Anesthesia recommendation Review of Systems Review of Systems Yes all other systems are reviewed and are negative Physical Exam Vital Signs: Last Vital Signs Temp 99.3 F 04/06/22 14:02 Pulse 79 04/06/22 14:02 Resp 16 04/06/22 14:02 BP 112/71 04/06/22 14:02 Pulse Ox 94 04/06/22 14:02 O2 Del Method 04/06/22 14:02 BMI result Body Mass Index 23.6 Const General: cooperative, comfortable, alert and awake Nutritional Appearance: average body habitus Orientation/consciousness: patient oriented x3 Neck Neck: Yes trachea midline, Yes supple and Yes no JVD Resp Effort & Inspection: normal respiratory effort Auscultation: clear to auscultation bilaterally Cardio Jugular venous distension: no JVD Palpation: normal PMI Rate: regular rate Rhythm: regular rhythm Heart sounds: S1 normal heart sound present, S2 normal heart sound present, no click, no gallops and Murmur heart sound present systolic at the apex Skin Lesions: lesion noted (Maculopapular rash diffusely) Neuro General: patient oriented x3 and no focal motor deficits Objective Labs and Meds 04/06/22 06:02 04/06/22 06:02 Lab results: Laboratory Results - last 24 hr 04/04/22 04/06/22 04/06/22 06:07 00:00 06:02 WBC RBC Hgb Hct MCV MCH MCHC RDW Plt Count MPV Absolute Nucleated RBC Nucleated RBC % (auto) Sodium 132 L Potassium 4.2 Chloride 105 Carbon Dioxide 19 L Anion Gap 12 BUN 10 Creatinine 0.64 Estim Creat Clear Calc 118.1 Estimated GFR > 60 Random Glucose 94 Calcium 7.7 L Magnesium 1.6 Total Bilirubin 0.7 AST 107 H ALT 71 H Alkaline Phosphatase 174 H Total Protein 6.8 Albumin 2.1 L Vancomycin Trough Urine Opiates Screen Not Detected Urine Fentanyl Screen POSITIVE H Ur Barbiturates Screen Not Detected Ur Phencyclidine Scrn Not Detected Ur Amphetamines Screen Not Detected U Benzodiazepines Scrn Not Detected Urine Cocaine Screen Not Detected U Marijuana (THC) Screen Not Detected Hep Bs Antigen Negative Hep Bs Antibody REACTIVE Hep B Core Total Ab Reactive Hep B Core IgM Ab Cancelled Hepatitis C Ab (EIA) Reactive H HIV 1&2 Ab/P24 Ag 4thGn Nonreactive 04/06/22 04/06/22 06:02 12:56 WBC 6.1 RBC 2.89 L Hgb 7.6 L Hct 22.9 L MCV 79.2 L MCH 26.3 L MCHC 33.2 RDW 16.7 H Plt Count 92 L MPV 8.8 L Absolute Nucleated RBC 0.000 Nucleated RBC % (auto) 0.0 Sodium Potassium Chloride Carbon Dioxide Anion Gap BUN Creatinine Estim Creat Clear Calc Estimated GFR Random Glucose Calcium Magnesium Total Bilirubin AST ALT Alkaline Phosphatase Total Protein Albumin Vancomycin Trough 13.4 Urine Opiates Screen Urine Fentanyl Screen Ur Barbiturates Screen Ur Phencyclidine Scrn Ur Amphetamines Screen U Benzodiazepines Scrn Urine Cocaine Screen U Marijuana (THC) Screen Hep Bs Antigen Hep Bs Antibody Hep B Core Total Ab Hep B Core IgM Ab Hepatitis C Ab (EIA) HIV 1&2 Ab/P24 Ag 4thGn Imaging Radiologist's impression: Impressions KUB X-Ray 04/06/22 07:48 IMPRESSION: 1. No neural stimulators seen in the lower thoracic, lumbar or sacral spine. 2. Mild constipation. Progress Note: A&P Assessment and plan (1) Bacteremia: Status: Acute Assessment and Plan: Bacteremia with high likelihood of mitral valve endocarditis. Schedule for HEVER tomorrow for better assessing mitral valve as well as secondary complications. Procedure was postponed due to his urine toxicology report of positive fentanyl. Patient is aware of it and he is agreeable to pursue the procedure tomorrow as planned. Keep him NPO past midnight. Continue antibiotic treatment Time Spent With Patient Time: Total time managing care of this patient today ____ minutes. Progress Note: Quality Stroke Does the patient have a stroke diagnosis?: No Procedures Date of Service Date of Service: 04/06/22
[2022-04-06 19:07] VITALS: BP 128/76; PULSE 88; RESP 19; TEMP 37.4; O2SAT 96
[2022-04-06] MEDS: traZODone HCL 50 MG TABLET PO (21:07)
[2022-04-06] MEDS: cefTRIAXone sodium 1 GM in 0.9 % Sodium Chloride 50 ML IV (21:10)
[2022-04-07] VITALS (11 sets, daily range): BP systolic 80–113; BP diastolic 46–74; PULSE 70–85; RESP 12–18; TEMP 36.3–37.8; O2SAT 94–98
[2022-04-07] MEDS: vancomycin HCL 1,250 MG in 0.9 % Sodium Chloride 250 ML 166.67 MG IV (02:41)
[2022-04-07] MEDS: Acetaminophen 325 MG TABLET 650 MG PO (02:44)
[2022-04-07 07:01] LABS: Hematocrit 23.6 % (42.0-52.0); Hemoglobin 7.7 g/dl (14.0-18.0); Mean Corpuscular HGB Conc 32.6 g/dl (31.0-36.0); Mean Corpuscular Hemoglobin 26.2 pg (27.0-33.0); Mean Corpuscular Volume 80.3 fL (80.0-98.0); Mean Platelet Volume 9.2 fL (9.4-12.4); Red Blood Count 2.94 X10*6/uL (4.60-5.80); Red Cell Distribution Width 16.5 % (11.0-16.0); White Blood Count 7.2 X10*3/uL (4.8-10.8)
[2022-04-07 07:13] LABS: Platelet Count 88 X10*3/uL (160-400)
[2022-04-07 07:27] LABS: Anion Gap 11 (12-20); Blood Urea Nitrogen 13 mg/dL (9-16); Calcium 7.8 mg/dL (8.4-10.2); Carbon Dioxide 21 mmol/L (22-29); Chloride 105 mmol/L (96-108); Estimated Glomerular Filt Rate > 60; Glucose Random 89 mg/dL (60-115); Potassium 4.2 mmol/L (3.3-5.1); Sodium 133 mmol/L (135-145)
--- NOTE | 2022-04-07 07:53 | MHC.SHP ---
Pre-Procedural Eval Section A Date of Service: 04/07/22 The patient is an INPATIENT: Yes Changes since office visit: Yes Patient answered all questions; No Cold of Flu in the past 2 weeks, No New Medical Problems and No Changes in Medication The History & Physical has been completed within 30 days and I have reviewed it.: Yes Section B Chief Complaint: cough Allergies: Allergies Allergy/AdvReac Type Severity Reaction Status Date / Time No Known Allergies Allergy Verified 04/03/22 19:46 Plan I have reviewed the history and physical and performed a pertinent physical examination on my patient. No changes have occurred unless specified. Time Spent With Patient Time: Total time managing care of this patient today ____ minutes.
--- NOTE | 2022-04-07 08:00 | CA_ITS ---
Transesophageal Echocardiogram Patient (Last, First, Middle): Tai Sommer, Gender: Male Date of : 1960 Age: 61 Procedure Date: 04/07/2022 Procedure Type: Transesophageal Echocardiogram Location: S3E Height: 172. cm Weight: 72.58 kg BSA: 1.85 m2 Heart Rate: bpm BP: 108 / 68 mmHg World Geography Teacher: ODALYS Referring MD: Dann Subramanian MD Manager Data Warehousing: Dann Subramanian MD Symptoms: Evaluate for endocarditis Conclusion: ??? 1. Complicated large vegetation affecting both mitral valve leaflet predominantly anterior mitral leaflet with apparently perforation of the anterior leaflet with at least moderately severe mitral regurgitation 2. Normal LV systolic function 3. No intracardiac thrombi or masses next 4. No intracardiac shunting 5 5. Normal pericardium Findings Procedure Information Consent was obtained prior to the procedure. Pre LINDSAY oral cavity was checked and revealed no overcrowding. The adult 3D probe was passed with no difficulty. Left Ventricle Normal left ventricular size, thickness, and systolic function. The visually estimated ejection fraction is between 60-65%. Spectral Doppler is indicative of a normal filling pattern. Right Ventricle Normal right ventricular cavity size and systolic function. Atria Mild biatrial enlargement. The left atrium is normal in size. There is no evidence of interatrial shunt. The left atrium is free of any masses or clots or significant smoke formation. The left atrial appendage also is free of any clots. The left atrial appendage ejection velocity is mildly depressed. The left upper, right upper and right lower pulmonary vein drain normally into the left atrium. The right atrium is free of any thrombi or masses. The IVC and SVC drain normally into the right atrium. There is a Eustachian valve notice at the junction of IVC and right atrium. Aortic Valve There is no aortic valve stenosis. There is no aortic valve regurgitation. Calcified not ill noted on the aortic valve leaflet, probably healed vegetation. The inter valvular fibrosis are shows no thickening or lucency suggestive of an abscess. Mitral Valve There is mild anterior and posterior mitral leaflet thickening. There is evidence of a perforation of the anterior mitral valve leaflet. The abscess measures 1.77 cm x 1.03 cm. There appears to be at least moderate to moderately severe overall mitral regurgitation with 2 separate jets of mitral regurgitation. One of them appears to be due to interference of leaflet coaptation due to the vegetation and 1 appears to be due to perforation. Large prolapsing vegetation seen on the anterior leaflet. There is also evidence of vegetation on the posterior leaflet. Pulmonic Valve The pulmonic valve is likely normal. Tricuspid Valve Normal tricuspid valve structure. There is mild tricuspid valve regurgitation. The right ventricular systolic pressure is normal. There is no evidence of pulmonary hypertension. Great Vessels All visible segments of the aorta are normal in size. The visualized portions of the pulmonary artery and branches are normal. Venous The inferior vena cava is normal in size and collapses greater than 50% with inspiration. Pericardium/Pleural There is no evidence of pericardial effusion. Measurements Tricuspid Valve TR Pk Colten: 1.85 TR Pk Grad: 14.00 Updated by Dann Subramanian on 10:26 AM with Status of Final Dnan Subramanian MD electronically signed on 04/07/2022 10:26:19 AM with status of Final
--- NOTE | 2022-04-07 09:40 | P.CONAN_ITS ---
HPI - Anesthesia Eval Consult details Narrative: 61 yo for Hever for evaluation of endocarditis PMFSH Active Problems Active Problems: All Active Problems (Updated 04/05/22 @ 15:29 by Nesha Camargo MD) Endocarditis (Acute) Sepsis (Acute) Bacteremia (Acute) Pneumonia (Acute) Weakness (Acute) Transaminitis (Acute) Microcytic anemia (Acute) Alcohol use disorder (Acute) Tobacco use disorder (Acute) Mood disorder (Acute) Past Medical History Medical History Alcohol use disorder Endocarditis Mood disorder Pneumonia Sepsis Tobacco use disorder Family History Family history of problems with anesthesia: No Surgical History History of Problems with Anesthesia: No Social History Social History Household Members: None Housing: Other Housing Other:: homeless Do you presently have visiting nurse or other home services: No Patient Tobacco Use Status: Current everyday Tobacco user Tobacco use type: Cigarette Cigarette Packs Per Day: 2 Cigarettes Per Day: 40.0 Substance Use Type: Crack/Cocaine service: No Current occupational status: unemployed Meds Allergies Allergy/AdvReac Type Severity Reaction Status Date / Time No Known Allergies Allergy Verified 04/03/22 19:46 Active Medications: Current Medications Acetaminophen (Acetaminophen 325 Mg Tablet) 650 mg PO Q6H PRN PRN Reason: Pain, Mild (Pain Scale 1-3) Last Admin: 04/07/22 02:44 Dose: 650 mg Ferrous Sulfate (Ferrous Sulfate 324 Mg Tablet.Dr) 324 mg PO DAILY [facility] Last Admin: 04/06/22 08:01 Dose: 324 mg Gabapentin (Gabapentin 300 Mg Capsule) 300 mg PO TID [facility] Last Admin: 04/06/22 21:07 Dose: 300 mg Ceftriaxone Sodium 1 gm/ (Sodium Chloride) 50 mls @ 100 mls/hr IV Q24H [facility] Last Infusion: 04/06/22 21:40 Dose: Infused Vancomycin HCl 1,250 mg/ (Sodium Chloride) 250 mls @ 166.667 mls/hr IV Q12H [facility] Last Infusion: 04/07/22 04:11 Dose: Infused Melatonin (Melatonin 3 Mg Tablet) 6 mg PO BEDTIME PRN PRN Reason: Insomnia Methadone HCl (Methadone Hcl 20 Mg/2 Ml Oral.Conc) 55 mg PO DAILY [facility] Last Admin: 04/06/22 08:01 Dose: 55 mg Nicotine Polacrilex (Nicotine Polacrilex 2 Mg Gum) 2 mg BUCCAL Q1H PRN PRN Reason: amaury crav Last Admin: 04/05/22 08:43 Dose: 2 mg Ondansetron HCl (Ondansetron Hcl 4 Mg/2 Ml Vial) 4 mg IVPUSH Q8H PRN PRN Reason: Nausea and Vomiting Pharmacy Consult (Consult Rx Perform Med Rec) 1 each MISCELLANE ONCE PRN PRN Reason: Consult order Pharmacy Consult (Consult Rx Vancomycin Dosing) 1 each MISCELLANE DAILY PRN PRN Reason: Consult order Sodium Chloride (0.9 % Sodium Chloride Flush 3 Ml Syringe) 3 ml IVFLUSH QSHIFT [facility] Last Admin: 04/06/22 21:55 Dose: Not Given Trazodone HCl (Trazodone Hcl 50 Mg Tablet) 50 mg PO BEDTIME [facility] Last Admin: 04/06/22 21:07 Dose: 50 mg Home Medications Medication Instructions Recorded Confirmed Last Taken Type acetaminophen 500 mg tablet 1 tab PO Q6H PRN Pain 04/04/22 04/04/22 Unknown History ferrous sulfate 325 mg (65 mg 325 mg PO DAILY 04/04/22 04/04/22 Unknown History iron) tablet (FeroSul) gabapentin 300 mg capsule 1 cap PO TID 04/04/22 04/04/22 Unknown History ibuprofen 400 mg tablet 1 tab PO Q6H PRN Pain 04/04/22 04/04/22 Unknown History methadone 10 mg/mL oral 55 mg PO DAILY 04/04/22 04/04/22 04/03/22 History concentrate (Methadose) 55 mg trazodone 50 mg tablet 1 tab PO BEDTIME 04/04/22 04/04/22 Unknown History Exam Exam Date and Time: April 07, 2022 0940 Height,Weight and Vital Signs: Height 5 ft 9 in Weight 72.575 kg Last Vital Signs Temp 97.6 F 04/07/22 08:50 Pulse 74 04/07/22 09:35 Resp 16 04/07/22 09:35 BP 91/54 L 04/07/22 09:35 Pulse Ox 96 04/07/22 09:35 O2 Del Method 04/07/22 09:35 O2 Flow Rate 6 04/07/22 09:35 Pertinent Lab Results Pertinent Lab Results: Laboratory Tests 04/03/22 04/03/22 04/03/22 20:19 20:19 20:19 WBC 10.0 RBC 2.99 L Hgb 7.6 L Hct 23.6 L MCV 78.9 L MCH 25.4 L MCHC 32.2 RDW 16.5 H Plt Count 107 L MPV 9.4 Immature Gran % (Auto) 1.7 H Neut % (Auto) 80.6 H Lymph % (Auto) 6.8 L [place] % (Auto) 10.5 Eos % (Auto) 0.2 Baso % (Auto) 0.2 Lymph # (Auto) 0.7 L [place] # (Auto) 1.1 Eos # (Auto) 0.0 Baso # (Auto) 0.0 Abs Immat Gran (auto) 0.17 H Absolute Neuts (auto) 8.0 Absolute Nucleated RBC 0.000 Nucleated RBC % (auto) 0.0 Sodium 128 L Potassium 4.7 Chloride 100 Carbon Dioxide 20 L Anion Gap 13 BUN 16 Creatinine 0.62 Estim Creat Clear Calc 121.9 Estimated GFR > 60 Random Glucose 104 Lactic Acid 1.3 Calcium 7.9 L Magnesium Iron 23 L TIBC 215 L % Saturation 11 L Unsat Iron Binding 192 Total Bilirubin 0.8 AST 146 H ALT 90 H Alkaline Phosphatase 181 H Total Protein 7.5 Albumin 2.4 L Urine Color Urine Appearance Urine pH Ur Specific [place] Urine Protein Urine Glucose (UA) Urine Ketones Urine Blood Urine Nitrite Ur Leukocyte Esterase Urine RBC Urine WBC Ur Squamous Epith Cells Urine Bacteria Hyaline Casts Stool Occult Blood Vancomycin Trough Urine Opiates Screen Urine Fentanyl Screen Ur Barbiturates Screen Ur Phencyclidine Scrn Ur Amphetamines Screen U Benzodiazepines Scrn Urine Cocaine Screen U Marijuana (THC) Screen Hep Bs Antigen Hep Bs Antibody Hep B Core Total Ab Hep B Core IgM Ab Hepatitis C Ab (EIA) HIV 1&2 Ab/P24 Ag 4thGn Influenza Type A (PCR) Influenza Type B (PCR) RSV RNA Qual (PCR) SARS-CoV-2 RNA (RT-PCR) Blood Type Rho(D) Type Antibody Screen 04/03/22 04/03/22 04/03/22 20:19 21:07 23:28 WBC RBC Hgb Hct MCV MCH MCHC RDW Plt Count MPV Immature Gran % (Auto) Neut % (Auto) Lymph % (Auto) [place] % (Auto) Eos % (Auto) Baso % (Auto) Lymph # (Auto) [place] # (Auto) Eos # (Auto) Baso # (Auto) Abs Immat Gran (auto) Absolute Neuts (auto) Absolute Nucleated RBC Nucleated RBC % (auto) Sodium Potassium Chloride Carbon Dioxide Anion Gap BUN Creatinine Estim Creat Clear Calc Estimated GFR Random Glucose Lactic Acid Calcium Magnesium Iron TIBC % Saturation Unsat Iron Binding Total Bilirubin AST ALT Alkaline Phosphatase Total Protein Albumin Urine Color Yellow Urine Appearance Clear Urine pH 7.0 Ur Specific [place] 1.015 Urine Protein Negative Urine Glucose (UA) Negative Urine Ketones Negative Urine Blood Small (1+) H Urine Nitrite Negative Ur Leukocyte Esterase Negative Urine RBC 0-2 Urine WBC 0-5 Ur Squamous Epith Cells 0-2 Urine Bacteria None Seen Hyaline Casts 0-2 Stool Occult Blood POSITIVE Vancomycin Trough Urine Opiates Screen Urine Fentanyl Screen Ur Barbiturates Screen Ur Phencyclidine Scrn Ur Amphetamines Screen U Benzodiazepines Scrn Urine Cocaine Screen U Marijuana (THC) Screen Hep Bs Antigen Hep Bs Antibody Hep B Core Total Ab Hep B Core IgM Ab Hepatitis C Ab (EIA) HIV 1&2 Ab/P24 Ag 4thGn Influenza Type A (PCR) NEGATIVE Influenza Type B (PCR) NEGATIVE RSV RNA Qual (PCR) NEGATIVE SARS-CoV-2 RNA (RT-PCR) NEGATIVE Blood Type Rho(D) Type Antibody Screen 04/03/22 04/04/22 04/04/22 23:55 00:28 06:07 WBC 6.6 RBC 2.87 L Hgb 7.5 L Hct 23.2 L MCV 80.8 MCH 26.1 L MCHC 32.3 RDW 16.7 H Plt Count 84 L MPV 9.0 L Immature Gran % (Auto) 1.8 H Neut % (Auto) 72.2 Lymph % (Auto) 8.9 L [place] % (Auto) 16.1 H Eos % (Auto) 0.8 Baso % (Auto) 0.2 Lymph # (Auto) 0.6 L [place] # (Auto) 1.1 Eos # (Auto) 0.1 Baso # (Auto) 0.0 Abs Immat Gran (auto) 0.12 H Absolute Neuts (auto) 4.8 Absolute Nucleated RBC 0.000 Nucleated RBC % (auto) 0.0 Sodium Potassium Chloride Carbon Dioxide Anion Gap BUN Creatinine Estim Creat Clear Calc Estimated GFR Random Glucose Lactic Acid Calcium Magnesium Iron TIBC % Saturation Unsat Iron Binding Total Bilirubin AST ALT Alkaline Phosphatase Total Protein Albumin Urine Color Urine Appearance Urine pH Ur Specific [place] Urine Protein Urine Glucose (UA) Urine Ketones Urine Blood Urine Nitrite Ur Leukocyte Esterase Urine RBC Urine WBC Ur Squamous Epith Cells Urine Bacteria Hyaline Casts Stool Occult Blood Vancomycin Trough Urine Opiates Screen Urine Fentanyl Screen Ur Barbiturates Screen Ur Phencyclidine Scrn Ur Amphetamines Screen U Benzodiazepines Scrn Urine Cocaine Screen U Marijuana (THC) Screen Hep Bs Antigen Hep Bs Antibody Hep B Core Total Ab Hep B Core IgM Ab Hepatitis C Ab (EIA) HIV 1&2 Ab/P24 Ag 4thGn Influenza Type A (PCR) Influenza Type B (PCR) RSV RNA Qual (PCR) SARS-CoV-2 RNA (RT-PCR) Blood Type Cancelled O Negative Rho(D) Type Cancelled Antibody Screen Cancelled NEGATIVE 04/04/22 04/04/22 04/05/22 06:07 06:07 05:51 WBC RBC Hgb Hct MCV MCH MCHC RDW Plt Count MPV Immature Gran % (Auto) Neut % (Auto) Lymph % (Auto) [place] % (Auto) Eos % (Auto) Baso % (Auto) Lymph # (Auto) [place] # (Auto) Eos # (Auto) Baso # (Auto) Abs Immat Gran (auto) Absolute Neuts (auto) Absolute Nucleated RBC Nucleated RBC % (auto) Sodium 133 L 133 L Potassium 4.4 4.4 Chloride 106 105 Carbon Dioxide 20 L 20 L Anion Gap 11 L 12 BUN 17 H 14 Creatinine 0.64 0.66 Estim Creat Clear Calc 118.1 114.5 Estimated GFR > 60 > 60 Random Glucose 72 82 Lactic Acid Calcium 7.9 L 7.8 L Magnesium 1.8 Iron TIBC % Saturation Unsat Iron Binding Total Bilirubin AST ALT Alkaline Phosphatase Total Protein Albumin Urine Color Urine Appearance Urine pH Ur Specific [place] Urine Protein Urine Glucose (UA) Urine Ketones Urine Blood Urine Nitrite Ur Leukocyte Esterase Urine RBC Urine WBC Ur Squamous Epith Cells Urine Bacteria Hyaline Casts Stool Occult Blood Vancomycin Trough Urine Opiates Screen Urine Fentanyl Screen Ur Barbiturates Screen Ur Phencyclidine Scrn Ur Amphetamines Screen U Benzodiazepines Scrn Urine Cocaine Screen U Marijuana (THC) Screen Hep Bs Antigen Negative Hep Bs Antibody REACTIVE Hep B Core Total Ab Reactive Hep B Core IgM Ab Cancelled Hepatitis C Ab (EIA) Reactive H HIV 1&2 Ab/P24 Ag 4thGn Nonreactive Influenza Type A (PCR) Influenza Type B (PCR) RSV RNA Qual (PCR) SARS-CoV-2 RNA (RT-PCR) Blood Type Rho(D) Type Antibody Screen 04/05/22 04/05/22 04/06/22 05:51 13:20 00:00 WBC 7.2 RBC 2.92 L Hgb 7.6 L Hct 23.3 L MCV 79.8 L MCH 26.0 L MCHC 32.6 RDW 16.9 H Plt Count 93 L MPV 8.7 L Immature Gran % (Auto) 1.4 H Neut % (Auto) 75.2 H Lymph % (Auto) 9.6 L [place] % (Auto) 12.5 H Eos % (Auto) 1.0 Baso % (Auto) 0.3 Lymph # (Auto) 0.7 L [place] # (Auto) 0.9 Eos # (Auto) 0.1 Baso # (Auto) 0.0 Abs Immat Gran (auto) 0.10 H Absolute Neuts (auto) 5.4 Absolute Nucleated RBC 0.000 Nucleated RBC % (auto) 0.0 Sodium Potassium Chloride Carbon Dioxide Anion Gap BUN Creatinine Estim Creat Clear Calc Estimated GFR Random Glucose Lactic Acid Calcium Magnesium Iron TIBC % Saturation Unsat Iron Binding Total Bilirubin AST ALT Alkaline Phosphatase Total Protein Albumin Urine Color Urine Appearance Urine pH Ur Specific [place] Urine Protein Urine Glucose (UA) Urine Ketones Urine Blood Urine Nitrite Ur Leukocyte Esterase Urine RBC Urine WBC Ur Squamous Epith Cells Urine Bacteria Hyaline Casts Stool Occult Blood Vancomycin Trough 9.4 L Urine Opiates Screen Not Detected Urine Fentanyl Screen POSITIVE H Ur Barbiturates Screen Not Detected Ur Phencyclidine Scrn Not Detected Ur Amphetamines Screen Not Detected U Benzodiazepines Scrn Not Detected Urine Cocaine Screen Not Detected U Marijuana (THC) Screen Not Detected Hep Bs Antigen Hep Bs Antibody Hep B Core Total Ab Hep B Core IgM Ab Hepatitis C Ab (EIA) HIV 1&2 Ab/P24 Ag 4thGn Influenza Type A (PCR) Influenza Type B (PCR) RSV RNA Qual (PCR) SARS-CoV-2 RNA (RT-PCR) Blood Type Rho(D) Type Antibody Screen 04/06/22 04/06/22 04/06/22 06:02 06:02 12:56 WBC 6.1 RBC 2.89 L Hgb 7.6 L Hct 22.9 L MCV 79.2 L MCH 26.3 L MCHC 33.2 RDW 16.7 H Plt Count 92 L MPV 8.8 L Immature Gran % (Auto) Neut % (Auto) Lymph % (Auto) [place] % (Auto) Eos % (Auto) Baso % (Auto) Lymph # (Auto) [place] # (Auto) Eos # (Auto) Baso # (Auto) Abs Immat Gran (auto) Absolute Neuts (auto) Absolute Nucleated RBC 0.000 Nucleated RBC % (auto) 0.0 Sodium 132 L Potassium 4.2 Chloride 105 Carbon Dioxide 19 L Anion Gap 12 BUN 10 Creatinine 0.64 Estim Creat Clear Calc 118.1 Estimated GFR > 60 Random Glucose 94 Lactic Acid Calcium 7.7 L Magnesium 1.6 Iron TIBC % Saturation Unsat Iron Binding Total Bilirubin 0.7 AST 107 H ALT 71 H Alkaline Phosphatase 174 H Total Protein 6.8 Albumin 2.1 L Urine Color Urine Appearance Urine pH Ur Specific [place] Urine Protein Urine Glucose (UA) Urine Ketones Urine Blood Urine Nitrite Ur Leukocyte Esterase Urine RBC Urine WBC Ur Squamous Epith Cells Urine Bacteria Hyaline Casts Stool Occult Blood Vancomycin Trough 13.4 Urine Opiates Screen Urine Fentanyl Screen Ur Barbiturates Screen Ur Phencyclidine Scrn Ur Amphetamines Screen U Benzodiazepines Scrn Urine Cocaine Screen U Marijuana (THC) Screen Hep Bs Antigen Hep Bs Antibody Hep B Core Total Ab Hep B Core IgM Ab Hepatitis C Ab (EIA) HIV 1&2 Ab/P24 Ag 4thGn Influenza Type A (PCR) Influenza Type B (PCR) RSV RNA Qual (PCR) SARS-CoV-2 RNA (RT-PCR) Blood Type Rho(D) Type Antibody Screen 04/07/22 04/07/22 05:46 05:46 WBC 7.2 RBC 2.94 L Hgb 7.7 L Hct 23.6 L MCV 80.3 MCH 26.2 L MCHC 32.6 RDW 16.5 H Plt Count 88 L MPV 9.2 L Immature Gran % (Auto) Neut % (Auto) Lymph % (Auto) [place] % (Auto) Eos % (Auto) Baso % (Auto) Lymph # (Auto) [place] # (Auto) Eos # (Auto) Baso # (Auto) Abs Immat Gran (auto) Absolute Neuts (auto) Absolute Nucleated RBC 0.000 Nucleated RBC % (auto) 0.0 Sodium 133 L Potassium 4.2 Chloride 105 Carbon Dioxide 21 L Anion Gap 11 L BUN 13 Creatinine 0.63 Estim Creat Clear Calc 120.0 Estimated GFR > 60 Random Glucose 89 Lactic Acid Calcium 7.8 L Magnesium Iron TIBC % Saturation Unsat Iron Binding Total Bilirubin AST ALT Alkaline Phosphatase Total Protein Albumin Urine Color Urine Appearance Urine pH Ur Specific [place] Urine Protein Urine Glucose (UA) Urine Ketones Urine Blood Urine Nitrite Ur Leukocyte Esterase Urine RBC Urine WBC Ur Squamous Epith Cells Urine Bacteria Hyaline Casts Stool Occult Blood Vancomycin Trough Urine Opiates Screen Urine Fentanyl Screen Ur Barbiturates Screen Ur Phencyclidine Scrn Ur Amphetamines Screen U Benzodiazepines Scrn Urine Cocaine Screen U Marijuana (THC) Screen Hep Bs Antigen Hep Bs Antibody Hep B Core Total Ab Hep B Core IgM Ab Hepatitis C Ab (EIA) HIV 1&2 Ab/P24 Ag 4thGn Influenza Type A (PCR) Influenza Type B (PCR) RSV RNA Qual (PCR) SARS-CoV-2 RNA (RT-PCR) Blood Type Rho(D) Type Antibody Screen Airway Mallampati Class: II TM Dist: >3cm Neck ROM: Full Loose/Missing/Broken Teeth: Upper and Lower (Only 4 front lower) Heart: rrnsr Lungs: cta Assessment and Plan Final Anesthetic Review Family History of Problems with Anesthesia: No History of Problems with Anesthesia: No NPO: Yes ASA Class: III Final Preanesthetic Review: No Changes in Pt Med Stat, Meds/Allgs Chart Reviewed and Anes Risks/Benef Reviewed Patient Risk: Intermediate Procedure Risk: Low Anesthetic Plan Anesthetic Plan: MAC: Disposition: Standard PACU
--- NOTE | 2022-04-07 10:15 | PM.DS ---
DS: Providers Provider Date of Service: 04/07/22 Date of admission: 04/04/22 00:05 Date of discharge: 04/07/22 Primary care physician: Reena Mcdermott MD Consults: 04/04/22 00:19 Consult to Gastroenterology Routine Consulting Provider: Yan Hackett Reason for consultation: GI bleed 04/04/22 13:33 Consult to Infectious Diseases Routine Consulting Provider: Nesha Camargo Reason for consultation: bacteremia/endocarditis 04/04/22 17:33 Consult to Cardiology Routine Consulting Provider: Dann Subramanian Reason for consultation: endocarditis DS: Diagnosis Discharge Diagnosis (1) Mitral valve vegetation: Status: Acute (2) Bacteremia: Status: Acute DS: Summary Hospital Course Hospital Course: 61-year-old male with pertinent history of alcohol use disorder, tobacco use disorder, mood disorder who presents to the emergency department for evaluation fever, chills and cough.? Patient states he has been having these symptoms for the last few days .? ER workup consistent with multi focal pneumonia; septic on presentation responding to septic protocol. Subsequent blood cultures 2/ positive for strep mitis/oralis. Seen by ID; continued on ceftriaxone and vancomycin. Bacteremic workup including TTE demonstrated likely mobile mass on mitral valve; this was confirmed by [facility] 04/07/2022. Patient also complained of severe back pain in the backdrop of chronic IV drug abuse. MRI of lumbar spine will not be able to be completed before transfer; may be obtained by receiving facility at their discretion. Dr. Subramanian discussed case with Dr. Yip ([facility]). Patient will be transferred to [facility] for same Time Spent with Patient Time attestation: Total time managing care of this patient today ____ minutes. Discharge coordination time: Greater than 30 minutes Quality: Safe Use of Opioids Does Pt have an Active Cancer Diagnosis on the Problem List?: No Quality: Stroke Does the patient have a stroke diagnosis?: No Physical Exam Vital Signs: Vital Signs: Last Vital Signs Temp 97.9 F 04/07/22 09:50 Pulse 72 04/07/22 10:05 Resp 14 04/07/22 10:05 BP 91/57 L 04/07/22 10:05 Pulse Ox 94 04/07/22 10:05 O2 Del Method 04/07/22 10:05 O2 Flow Rate 3 04/07/22 10:05 BMI result Body Mass Index 23.6 Const: Other: Awake alert no acute distress Resp: Other: Clear to auscultation bilaterally no rales rhonchi wheezes Cardio: Other: No S4; positive S1-S2; no S3.. 2/6 systolic murmur best heard at apex Extrem: Other: No edema bilaterally DS: Data Data Completed and Pending Labs on day of discharge: Laboratory Results - last 24 hr 04/04/22 04/06/22 04/07/22 06:07 12:56 05:46 WBC RBC Hgb Hct MCV MCH MCHC RDW Plt Count MPV Absolute Nucleated RBC Nucleated RBC % (auto) Sodium 133 L Potassium 4.2 Chloride 105 Carbon Dioxide 21 L Anion Gap 11 L BUN 13 Creatinine 0.63 Estim Creat Clear Calc 120.0 Estimated GFR > 60 Random Glucose 89 Calcium 7.8 L Vancomycin Trough 13.4 Hep B Core IgM Ab Cancelled 04/07/22 05:46 WBC 7.2 RBC 2.94 L Hgb 7.7 L Hct 23.6 L MCV 80.3 MCH 26.2 L MCHC 32.6 RDW 16.5 H Plt Count 88 L MPV 9.2 L Absolute Nucleated RBC 0.000 Nucleated RBC % (auto) 0.0 Sodium Potassium Chloride Carbon Dioxide Anion Gap BUN Creatinine Estim Creat Clear Calc Estimated GFR Random Glucose Calcium Vancomycin Trough Hep B Core IgM Ab Preliminary micro results at discharge 04/06/22 06:02 Blood Culture - Preliminary Blood - Venous No growth after 24 hours. 04/06/22 06:02 Blood Culture - Preliminary Blood - Venous No growth after 24 hours. Discharge Plan Discharge Anticipated Discharge Date/Time: 04/07/22 09:49 Patient Disposition: er [facility] Discharge Diagnosis: Mitral valve vegetative mass Referrals: Reena Mcdermott MD [Primary Care Provider] - 1 Week Discharge Medications: New ceftriaxone 1 gram Recon Soln 1 g IV Q24H Qty: 10 0RF vancomycin 1,000 mg recon soln 1,089 mg IV Q12H Qty: 10 0RF Continued trazodone 50 mg tablet 1 tab PO BEDTIME acetaminophen 500 mg tablet 1 tab PO Q6H PRN (Reason: Pain) ferrous sulfate [FeroSul] 325 mg (65 mg iron) tablet 325 mg PO DAILY ibuprofen 400 mg tablet 1 tab PO Q6H PRN (Reason: Pain) gabapentin 300 mg capsule 1 cap PO TID methadone [Methadose] 10 mg/mL Concentrate 55 mg PO DAILY Label Comments: Confirmed with April Jones Discharge Orders: Discharge Order (Routine); Ordered 04/07/22 Ordered By: Rajesh Monsivais Diet: Advance to usual diet Activity on Discharge: As tolerated Stand Alone Forms: Patient Portal Discharge page Care Plan Goals: Continue current therapies Health Concerns: Further plans as per receiving team Plan of Treatment: Transfer to [facility] for cardiothoracic surgery evaluation Assessment: See discharge summary
--- NOTE | 2022-04-07 10:49 | PM.PNCARD ---
Subjective Subjective Date of Service: 04/07/22 Principal diagnosis: Streptococcus bacteremia Interval history: Patient underwent HEVER which is complicated mitral valve vegetation involving both mitral valve leaflets without apparent perforation of the anterior leaflet and moderately severe mitral regurgitation. Vegetations size is large with maximum measured diameter of 1.77 cm by 1.06 cm. Review of Systems Constitutional: Reports weakness Cardiovascular: Reports no additional cardiovascular complaints Respiratory: Reports no additional respiratory complaints Musculoskeletal: Reports no additional musculoskeletal complaints Reports system reviewed and no additional complaints, except as documented and Reports weakness Physical Exam Vital Signs: Last Vital Signs Temp 97.9 F 04/07/22 10:30 Pulse 73 04/07/22 10:30 Resp 16 04/07/22 10:30 BP 97/60 04/07/22 10:30 Pulse Ox 97 04/07/22 10:30 O2 Del Method 04/07/22 10:30 O2 Flow Rate 3 04/07/22 10:30 BMI result Body Mass Index 23.6 Const General: cooperative, comfortable, alert and awake Nutritional Appearance: average body habitus Orientation/consciousness: patient oriented x3 Neck Neck: Yes trachea midline, Yes supple and Yes no JVD Resp Effort & Inspection: normal respiratory effort Auscultation: clear to auscultation bilaterally Cardio Jugular venous distension: no JVD Palpation: normal PMI Rate: regular rate Rhythm: regular rhythm Heart sounds: S1 normal heart sound present, S2 normal heart sound present, no click, no gallops and Murmur heart sound present systolic at the apex Skin Lesions: lesion noted (Maculopapular rash diffusely) Neuro General: patient oriented x3 and no focal motor deficits Objective Labs and Meds 04/07/22 05:46 04/07/22 05:46 Lab results: Laboratory Results - last 24 hr 04/04/22 04/06/22 04/07/22 06:07 12:56 05:46 WBC RBC Hgb Hct MCV MCH MCHC RDW Plt Count MPV Absolute Nucleated RBC Nucleated RBC % (auto) Sodium 133 L Potassium 4.2 Chloride 105 Carbon Dioxide 21 L Anion Gap 11 L BUN 13 Creatinine 0.63 Estim Creat Clear Calc 120.0 Estimated GFR > 60 Random Glucose 89 Calcium 7.8 L Vancomycin Trough 13.4 Hep B Core IgM Ab Cancelled 04/07/22 05:46 WBC 7.2 RBC 2.94 L Hgb 7.7 L Hct 23.6 L MCV 80.3 MCH 26.2 L MCHC 32.6 RDW 16.5 H Plt Count 88 L MPV 9.2 L Absolute Nucleated RBC 0.000 Nucleated RBC % (auto) 0.0 Sodium Potassium Chloride Carbon Dioxide Anion Gap BUN Creatinine Estim Creat Clear Calc Estimated GFR Random Glucose Calcium Vancomycin Trough Hep B Core IgM Ab Progress Note: A&P Assessment and plan (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 Discussed case with Cardiothoracic surgery at [facility], patient needs to be transferred to [facility] to be evaluated by them. Hever images have been transmitted. Continue IV antibiotics. Most likely require mitral valve replacement given complexity and large nature of mitral valve vegetation to avoid embolic events. Continue to be monitored by ID team. Will sign of the case at this point in time. Time Spent With Patient Time: Total time managing care of this patient today ____ minutes. Progress Note: Quality Stroke Does the patient have a stroke diagnosis?: No Procedures Date of Service Date of Service: 04/07/22
--- NOTE | 2022-04-07 11:00 | MHC.CM.PN ---
PT WILL TRANSFER TO [facility] TODAY VIA [facility]
[2022-04-07] MEDS: methADONE HCl 20 MG/2 ML ORAL.CONC 55 MG PO (12:18)
[2022-04-07] MEDS: 0.9 % Sodium Chloride Flush 3 ML SYRINGE IVFLUSH (12:18)
[2022-04-07] MEDS: Ferrous Sulfate 324 MG TABLET.DR PO (12:19)
[2022-04-07] MEDS: Gabapentin 300 MG CAPSULE PO (12:19)
[2022-04-07] MEDS: 0.9 % Sodium Chloride 1,000 ML 999 ML IVCONT (12:22)
[2022-04-07 13:44] LABS: Vancomycin Trough 13.8 mcg/mL (10.0-20.0)
--- NOTE | 2022-04-07 13:47 | HE.PHANOTE ---
Vancomycin Dosing Level therpaeutic at 13.8. Continue current regimen. next level 04/08 @ 1300. Ludwig MedeirosD
[2022-04-09 18:54] LABS: Legionella Ag Urine Not Detected (Not Detected)
[2022-04-11 07:59] LABS: HepC Viral Load 125000 IU/mL (NOT DETECTED)
== END 2022-04-07 14:42 | disposition short-term general hospital (02) | DRG 720 ==
LOC: HO.ED 20:57 → HO.EDOVER 04-04 00:14 → HO.S3 04-04 15:10
PROVIDERS: Family Medicine; Internal Medicine Cardiovascular Disease; Physician Assistant; Admitting Provider Student in an Organized Health Care Education/Training Program; Emergency Provider Internal Medicine; PCP Internal Medicine; Visit Provider Hospitalist
PROC: B24BZZ4 Ultrasonography of Heart with Aorta, Transesophageal (ICD-10-PCS; CPT 93312; principal; 2022-04-07 08:00)
DX: A40.8 Other streptococcal sepsis (principal); I33.0 Acute and subacute infective endocarditis; J18.9 Pneumonia, unspecified organism; D69.59 Other secondary thrombocytopenia; E87.1 Hypo-osmolality and hyponatremia; F11.20 Opioid dependence, uncomplicated; D50.9 Iron deficiency anemia, unspecified; M54.59 Other low back pain; R19.5 Other fecal abnormalities; I34.0 Nonrheumatic mitral (valve) insufficiency; F14.10 Cocaine abuse, uncomplicated; B95.4 Other streptococcus as the cause of diseases classified elsewhere; F17.210 Nicotine dependence, cigarettes, uncomplicated; F39 Unspecified mood [affective] disorder; Z71.6 Tobacco abuse counseling; Z20.822 Contact with and (suspected) exposure to COVID-19; Z79.899 Other long term (current) drug therapy
CPT/HCPCS: 0241U; 36415; 71045; 74018; 80048; 80053; 80202; 80307; 81001; 81003; 82272; 83540; 83605; 83735; 85025; 85027; 86704; 86705; 86706; 86803; 86850; 86900; 86901; 87040; 87077; 87186; 87205; 87340; 87389; 87449; 87522; 93005; 93306; 99285; J0456; J0696; J1885; J2250; J2370; J3370; J3371; Q9957